=== PATIENT | female | born 1990 | race Caucasian/White ===

== ENCOUNTER 2017-04-26 20:32 | Emergency (ER) | payer BC, SELFPAY ==
[2017-04-26 20:33] VITALS: BP 129/77; PULSE 95; RESP 16; TEMP 37.2; O2SAT 96; BMI 31.7
[2017-04-26] MEDS: Ondansetron 4 MG/2 ML Vial IV (21:12)
[2017-04-26] MEDS: 0.9% Normal Saline 1,000 ML 1000 ML IV (21:12)
--- NOTE | 2017-04-26 21:12 | ED.DCSUM_ITS ---
- ER Visit Summary Date of Service: 04/26/17 Chief Complaint: Nausea, vomiting, diarrhea History of Present Illness: The patient is a 26 F who is currently 19 weeks . She reports onset of nausea, vomiting, and diarrhea last evening. She is having more diarrhea than vomiting. She reports her temperature earlier today was 99.0. She took Tylenol around 7 PM tonight for some body aches and headache. She denies having cough or congestion. Her significant other had similar symptoms last week. Patient reports the OB nurse when her to come in for fluids. They had also talked about calling her in Tamiflu. Physical Examination: Blood pressure is 129/77, temperature 98.9, heart rate 95 , respiratory rate 16, pulse ox 96% on room air. Patient sitting upright in bed in no acute distress. She is nontoxic appearing. Head neck examination is unremarkable. Heart is regular rate and rhythm. No lung sounds are clear. Abdomen is soft mild epigastric tenderness. There is no guarding or rebound. Hypoactive bowel sounds are noted. Test Results: heart tones are measured at 140. CBC reveals normal white count with 83% neutrophils. Chemistry studies were potassium of 3.4. Urinalysis shows 15 ketones. Influenza swab is negative. Emergency Department Course and Treatment: She was given IV fluids and Zofran here. She is able to tolerate p.o. liquids. She be discharged with a prescription for Zofran. I did speak with Dr. Anand. There is no need to start the patient on Tamiflu at this time. Treatment Plan: [] Disposition: Discharge Impression: Viral gastroenteritis This note was generated with [email or web address] dictation software. It may contain incorrect words, spelling, and punctuation that were not noted in review of the chart prior to signing ED Disposition - Plan for ED Patient: Chief Complaint: Nausea/Vomiting/Diarrhea Referrals: Sherrie Duenas [Primary Care Provider] -
[2017-04-26 21:20] LABS: Absolute Lymphocyte Count 0.89 X10^3/ul (0.83-4.51); Absolute Neutrophil Count 7.7 X10^3/uL (2.0-7.7); Basophil# 0.01 X10^3/uL; Basophil% 0.1 % (0-1); Eosinophil# 0.01 X10^3/uL; Eosinophils% 0.1 % (0-5); Hematocrit 39.9 % (37-47); Hemoglobin 13.5 g/dl (12.0-15.0); Lymphocyte # 0.89 X10^3/ul (4.0); Lymphocyte % 9.6 % (19-41); Mean Corp Hgb Conc 33.8 g/gl (32-36); Mean Corpuscular Hgb 28.8 pg (27.0-32.0); Mean Corpuscular Volume 85.1 fL (81-99); Mean Platelet Vol. 10.4 fl (6.2-12.0); Monocyte# 0.64 X10^3/uL; Monocyte% 6.9 % (0-10); Neutrophil # 7.68 X10^3/uL (2.7-7.7); Neutrophil % 83.1 % (47-70); Platelet Count 194 K/mm3 (150-450); RBC Distribution Width CV 13.1 % (11.6-14.6); RBC Distribution Width SD 40.4 fl (35.1-43.9); Red Blood Count 4.69 M/mm3 (4.2-5.4); White Blood Count 9.3 K/mm3 (4.4-11.0)
[2017-04-26 21:22] LABS: POSITIVE COUNT NO; POSITIVE DIFFERENTIAL NO; POSITIVE MORPHOLOGY NO
[2017-04-26 21:34] LABS: Anion Gap 9 (5-15); BUN 8 mg/dL (7-18); BUN/Creat Ratio 13.1 RATIO (10-20); Calcium,Total 8.6 mg/dL (8.5-10.1); Chloride 105 mmol/L (98-107); Creatinine, Serum 0.61 mg/dL (0.55-1.02); EST Glomerular Filtration Rate 126 mL/min (>60); Est Glom Filt Rate - Afr Amer 153 mL/min (>60); Glucose 90 mg/dL (74-106); Potassium 3.4 mmol/L (3.5-5.1); Sodium Level 138 mmol/L (136-145)
[2017-04-26] MEDS: 0.9% Normal Saline 1,000 ML 150 ML IV (22:08)
[2017-04-26 22:19] LABS: Red Blood Cells-Urine 0 SEEN /hpf (0-5)
[2017-04-26 22:59] LABS: Color, Urine Yellow (Yellow); Glucose, Dipstick Normal (Normal); Ketone-Dipstick 15 mg/dl (Negative); Leukocyte Esterase-Dipstick 25 /ul (Negative); Nitrite-Dipstick Negative (Negative); Occult Blood-Urine Negative /ul (Negative); Protein-Dipstick 30 mg/dl (Negative); Urine Bilirubin Dipstick Negative (Negative); Urine Clarity Clear (Clear); Urine Urobilinogen Normal (Normal)
[2017-04-26 23:10] LABS: Bacteria 1+ /hpf (None Seen); Mucous, Urine 3+ /hpf (<or=2+); Squamous Epithelial Cells - UA 0-5 SEEN /hpf (5-10); White Blood Cells 0-5 SEEN /hpf (0-5)
--- NOTE | 2017-04-26 23:39 | ED.DEP ---
ED Disposition - Plan for ED Patient: Disposition: Home or Assisted Living Chief Complaint: Nausea/Vomiting/Diarrhea Instructions: ED Gastroenteritis Viral Prescriptions: Ondansetron [Zofran Odt] 4 mg PO Q8H PRN PRN #10 tablet PRN Reason: Nausea Referrals: Sherrie Duenas [Primary Care Provider] - Daniel Marcelino MD [STAFF PHYSICIAN] -
[2017-04-26] MEDS: Ondansetron ODT 4 MG Tablet PO (23:49)
[2017-04-26 23:56] VITALS: BP 110/67; PULSE 90; RESP 16; O2SAT 98
--- NOTE | 2017-04-26 23:57 | ED.RN ---
REVIEWED D/C INSTRUCTIONS, FOLLOW UP CARE, PRESCRIPTION, AND S/S THAT WOULD WARRANT A RETURN TO THE ED WITH PT. PT VERBALIZED AN UNDERSTANDING AND DENIES FURTHER QUESTIONS FOR THIS RN. PT SKIN P/W/D, RESP EVEN AND UNLABORED, PT A&O X 3, NO DISTRESS NOTED. PT AMBULATED OUT OF ED, GAIT STEADY.
== END 2017-04-26 23:59 | disposition home or self-care (01) ==
PROVIDERS: Emergency Provider Emergency Medicine; Family Provider Nurse Practitioner; PCP Nurse Practitioner
DX: O98.512 Other viral diseases complicating pregnancy, second trimester (principal); A08.4 Viral intestinal infection, unspecified; Z87.891 Personal history of nicotine dependence; Z3A.19 19 weeks gestation of pregnancy
CPT/HCPCS: 80048; 81001; 85025; 87804; 96361; 96374; 99283; J7030; A4216; J2405

== ENCOUNTER → 2017-07-05 15:29 | Outpatient (CLI) | payer BC, SELFPAY ==
[2017-07-05 17:16] LABS: Hematocrit 38.9 % (37-47); Hemoglobin 13.4 g/dl (12.0-15.0); Mean Corp Hgb Conc 34.4 g/gl (32-36); Mean Corpuscular Hgb 29.3 pg (27.0-32.0); Mean Corpuscular Volume 85.1 fL (81-99); Mean Platelet Vol. 11.3 fl (6.2-12.0); Platelet Count 233 K/mm3 (150-450); RBC Distribution Width CV 12.8 % (11.6-14.6); RBC Distribution Width SD 39.3 fl (35.1-43.9); Red Blood Count 4.57 M/mm3 (4.2-5.4); White Blood Count 10.8 K/mm3 (4.4-11.0)
[2017-07-05 17:18] LABS: Glucose Challenge Gest 1H 50g 149 mg/dL (70-140)
[2017-07-05 17:21] LABS: Scan Indicated on CBC? Y/N NO
== END ==
PROVIDERS: Visit Provider Obstetrics & Gynecology
DX: Z34.83 Encounter for supervision of other normal pregnancy, third trimester (principal)
CPT/HCPCS: 36415; 82950; 85027

== ENCOUNTER → 2017-07-16 08:04 | Outpatient (CLI) | payer BC, SELFPAY ==
[2017-07-16 09:57] LABS: Glucose GTT-Gestation. Fasting 69 mg/dL (<105)
[2017-07-16 10:56] LABS: Glucose GTT-Gestational 1 Hr 115 mg/dL (<190)
[2017-07-16 12:14] LABS: Glucose GTT-Gestational 2 Hr 108 mg/dL (<165)
[2017-07-16 12:16] LABS: Glucose GTT-Gestational 3 Hr 46 L (<145)
== END ==
PROVIDERS: Family Provider Nurse Practitioner; PCP Nurse Practitioner; Visit Provider Obstetrics & Gynecology
DX: O24.912 Unspecified diabetes mellitus in pregnancy, second trimester (principal); Z3A.00 Weeks of gestation of pregnancy not specified
CPT/HCPCS: 36415; 82951; 82952

== ENCOUNTER → 2017-08-28 18:57 | Outpatient (CLI) | payer BC, SELFPAY ==
[2017-08-28 20:59] LABS: Group B Strep DNA By PCR Negative (Negative); Internal Control PASS; Probe Check PASS; Specimen Processing Control PASS
== END ==
PROVIDERS: Family Provider Nurse Practitioner; PCP Nurse Practitioner; Visit Provider Obstetrics & Gynecology
DX: Z36.85 Encounter for antenatal screening for Streptococcus B (principal)
CPT/HCPCS: 87081; 87653

== ENCOUNTER 2017-09-26 01:30 | Inpatient (IN) | payer BC, SELFPAY ==
[2017-09-25 21:12] VITALS: BMI 38.3
[2017-09-25 21:45] LABS: ROM Internal Control Test YES-OK TO RESULT pt. (Internal QC); ROM Patient Test Negative (Negative)
[2017-09-26] MEDS: Nalbuphine 10 MG/ML Ampul IV (00:09)
[2017-09-26 00:32] LABS: Color, Urine Yellow (Yellow); Glucose, Dipstick Normal (Normal); Ketone-Dipstick Negative (Negative); Leukocyte Esterase-Dipstick Negative /ul (Negative); Mucous, Urine 0 SEEN /hpf (<or=2+); Nitrite-Dipstick Negative (Negative); Occult Blood-Urine 25 /ul (Negative); Protein-Dipstick 30 mg/dl (Negative); Red Blood Cells-Urine 0 SEEN /hpf (0-5); Specific Gravity, Urine 1.015 (1.002-1.030); Urine Bilirubin Dipstick Negative (Negative); Urine Clarity Sl. Cloudy (Clear); Urine Urobilinogen Normal (Normal); Urine pH 6.5 (5.0 - 8.0); White Blood Cells 0 SEEN /hpf (0-5)
[2017-09-26 00:43] LABS: AST(SGOT) 21 U/L (15-37); Alanine Aminotransfer ALT/SGPT 15 U/L (13-56); Creatinine, Serum 0.92 mg/dL (0.55-1.02); EST Glomerular Filtration Rate 78 mL/min (>60); Est Glom Filt Rate - Afr Amer 95 mL/min (>60); Estimated Creatinine Clearance 87.51 ml/min; Hematocrit 38.9 % (37-47); Hemoglobin 13.3 g/dl (12.0-15.0); Mean Corp Hgb Conc 34.2 g/gl (32-36); Mean Corpuscular Hgb 28.5 pg (27.0-32.0); Mean Corpuscular Volume 83.5 fL (81-99); Platelet Count 257 K/mm3 (150-450); Protein:Creat Ratio 393 mg/g CRE (0-200); RBC Distribution Width CV 12.9 % (11.6-14.6); RBC Distribution Width SD 38.5 fl (35.1-43.9); Red Blood Count 4.66 M/mm3 (4.2-5.4); Scan Indicated on CBC? Y/N NO; Uric Acid 6.9 mg/dL (2.6-6.0); White Blood Count 14.6 K/mm3 (4.4-11.0)
[2017-09-26 00:45] LABS: International Normalized Ratio 0.9; Prothrombin Time (Protime)PT. 12.4 SECONDS (11.7-14.9)
[2017-09-26 00:46] LABS: Bacteria RARE /hpf (None Seen); Partial Thromboplast Time 27.2 Seconds (24.1-36.2); Squamous Epithelial Cells - UA 0-5 SEEN /hpf (5-10)
[2017-09-26] MEDS: Lactated Ringers 1,000 ML 50 ML IV ×4 (01:00→17:01)
[2017-09-26] MEDS: Oxytocin 30 units/NS 500 ml 30 UNITS/500 ML IV.SOLN IV (04:05)
[2017-09-26] MEDS: fentaNYL-bupivacaine (epidural) 100 ML BAG EPIDURAL ×3 (04:09→17:38)
[2017-09-26] MEDS: Mag Hydrox/Al Hydrox/Simeth 30 ML UDC PO ×3 (06:30→18:25)
[2017-09-26] MEDS: Ondansetron 4 MG/2 ML Vial IV ×2 (06:31→17:53)
--- NOTE | 2017-09-26 07:00 | PN.OBGYN_ITS ---
Subjective: Comfortable with epidural in place. No headaches. Objective: Afeb BP 130s/90s - Physical Exam General: Alert, Oriented x3, Cooperative, No apparent distress Lungs: Clear to auscultation, Normal air movement Cardiovascular: Regular rate, Regular Rhythm Abdomen: Soft, Non Tender, Non-Distended, Gravid, Appropriate for Gestational Age Extremities: Edema - mild pedal Skin: No rashes Neurological: Neuro grossly intact Psych/Mental Status: Normal Affect Comment: CE -//-2 Weight: 244 lb 6.4 oz Body Mass Index (BMI) 38.3 Laboratory Tests Past 24 Hrs 09/25/17 09/26/17 09/26/17 21:15 00:00 00:00 WBC 14.6 H RBC 4.66 Hgb 13.3 Hct 38.9 MCV 83.5 MCH 28.5 MCHC 34.2 RDW 12.9 RDW Differential 38.5 Plt Count 257 MPV 12.0 PT 12.4 INR 0.9 APTT 27.2 Creatinine Estim Creat Clear Calc Est GFR (MDRD) Af Amer Est GFR (MDRD) Non-Af Uric Acid AST ALT Urine Color Urine Clarity Urine pH Ur Specific [place] Urine Protein Urine Glucose (UA) Urine Ketones Urine Occult Blood Urine Nitrite Urine Bilirubin Urine Urobilinogen Ur Leukocyte Esterase Urine RBC Urine WBC Ur Squamous Epith Cells Urine Bacteria Urine Mucus U Random Total Protein Urine Creatinine Protein/Creatinin Ratio Vag Amniotic Fld Detect Negative Blood Type Antibody Screen 09/26/17 09/26/17 09/26/17 00:00 00:00 00:00 WBC RBC Hgb Hct MCV MCH MCHC RDW RDW Differential Plt Count MPV PT INR APTT Creatinine 0.92 Estim Creat Clear Calc 87.51 Est GFR (MDRD) Af Amer 95 Est GFR (MDRD) Non-Af 78 Uric Acid 6.9 H AST 21 ALT 15 Urine Color Yellow Urine Clarity Sl. Cloudy Urine pH 6.5 Ur Specific [place] 1.015 Urine Protein 30 H Urine Glucose (UA) Normal Urine Ketones Negative Urine Occult Blood 25 H Urine Nitrite Negative Urine Bilirubin Negative Urine Urobilinogen Normal Ur Leukocyte Esterase Negative Urine RBC 0 SEEN Urine WBC 0 SEEN Ur Squamous Epith Cells 0-5 SEEN Urine Bacteria RARE Urine Mucus 0 SEEN U Random Total Protein 34.0 H Urine Creatinine 86.50 Protein/Creatinin Ratio 393 H Vag Amniotic Fld Detect Blood Type Antibody Screen 09/26/17 00:00 WBC RBC Hgb Hct MCV MCH MCHC RDW RDW Differential Plt Count MPV PT INR APTT Creatinine Estim Creat Clear Calc Est GFR (MDRD) Af Amer Est GFR (MDRD) Non-Af Uric Acid AST ALT Urine Color Urine Clarity Urine pH Ur Specific [place] Urine Protein Urine Glucose (UA) Urine Ketones Urine Occult Blood Urine Nitrite Urine Bilirubin Urine Urobilinogen Ur Leukocyte Esterase Urine RBC Urine WBC Ur Squamous Epith Cells Urine Bacteria Urine Mucus U Random Total Protein Urine Creatinine Protein/Creatinin Ratio Vag Amniotic Fld Detect Blood Type O POSITIVE Antibody Screen NEGATIVE Medical Necessity - Tobacco Use Smoking Status: Former smoker Assessment/Plan Admitted at 40w4d ega with elevated BPs in early labor with elevated uric acid and elevated protein/creatinine ratio on UA. No overt signs of preeclampsia. AROM performed. IUPC placed. Pitocin augmentation at 6 mu/min.
[2017-09-26] MEDS: Acetaminophen 325 MG Tablet PO ×2 (11:27→19:00)
--- NOTE | 2017-09-26 16:35 | PCM.PN.BLA ---
Progress Note LABOR PROGRESS NOTE Comfortable with epidural. AVSS GEN - NAD, AAO x3 SVE deferred, last exam anterior lip,0 station per RN Steve Farias. TOCO 4-5/10 min FHR 135, moderate variability, + accelerations, no decelerations A/P: 26yo G1 at 40 3/7wga, IOL on pitocin in active labor for preeclampsia without severe features, Cat I FHR -Maternal and statuses reassuring -Continue pitocin as tolerated by mother and fetus
[2017-09-26] MEDS: 0.9% Saline Lock 10 ML Syringe IV (19:01)
--- NOTE | 2017-09-26 20:35 | PCM.PN.BLA ---
Progress Note LABOR PROGRESS NOTE Mimi reports increasing painfulness in her back with contractions. AVSS GEN - NAD, AAO x 3 SVE FD/+1 station and pushes to +2 with mild caput TOCO 4/10 min FHR 180, minimal variability, no accelerations, + variable decelerations A/P:26yo G1 @ 40 3/7wga in active stage, Cat II FHR on pitocin with intra-amnionitic infection -ISE placed, FHR with waning variability and thick meconium -IV Gentamicin/Clindamycin ordered for infection - reviewed indications with patient and -Will plan to continue pushing with position changes and attempted vacuum delivery if further descent in 30 minutes
[2017-09-26] MEDS: Oxytocin 30 units/NS 500 ml 30 UNITS/500 ML IV.SOLN 334 UNITS IV (21:34)
[2017-09-26] MEDS: miSOPROStol 200 MCG Tablet 800 MCG RECTAL (22:00)
[2017-09-26] MEDS: Oxytocin 30 units/NS 500 ml 30 UNITS/500 ML IV.SOLN 167 UNITS IV (22:04)
--- NOTE | 2017-09-26 22:22 | PN_ITS ---
Progress Note LABOR PROGRESS NOTE Mimi reports increasing painfulness in her back with contractions. AVSS GEN - NAD, AAO x 3 SVE FD/+1 station and pushes to +2 with mild caput TOCO 4/10 min FHR 180, minimal variability, no accelerations, + variable decelerations A/P:26yo G1 @ 40 3/7wga in active stage, Cat II FHR on pitocin with intra- amnionitic infection -ISE placed, FHR with waning variability and thick meconium -IV Gentamicin/Clindamycin ordered for infection - reviewed indications with patient and -Will plan to continue pushing with position changes and attempted vacuum delivery if further descent in 30 minutes
--- NOTE | 2017-09-26 22:22 | PCM.OB.VAG ---
- Problem List (1) 40 weeks gestation of Status: Acute (2) Preeclampsia Status: Acute Qualifiers: Trimester: third trimester Qualified Code(s): O14.93 - Unspecified pre-eclampsia, third trimester (3) Vacuum extractor delivery, delivered Status: Acute (4) Chorioamnionitis Status: Acute Qualifiers: Fetus number: single or unspecified fetus Trimester: third trimester Qualified Code(s): O41.1230 - Chorioamnionitis, third trimester, not applicable or unspecified Comment: IV Gentamicin, Clindamycin Vaginal Delivery Maternal Presentation: Medically Indicated Induction Method of Induction: Pitocin, Amniotomy Medical Reason for Induction: - - Preeclampsia Amniotic Membrane Rupture Type: Artificial Rupture of Membrane time: 09/26/17 0647h Amniotic Fluid Description: Thick meconium Final SHAE: 09/23/17 Final SHAE Source: US <20 weeks Gestational age: 40 Weeks and 4 Days [place] doctor who attended delivery (if requested by OB): Abdulkadir García Date of Procedure: 09/26/17 Pre-Operative Diagnosis: 40 3/7wga, preeclampsia, chorioamnionitis, Cat II FHR Post-Operative Diagnosis: 40 3/7wga, preeclampsia, chorioamnionitis, Cat II FHR Surgery/ Procedure Performed: Vacuum Assisted Vaginal Delivery Anesthesiologist: Elena Vigil Type of Anesthesia: Epidural Description of Procedure: Patient was FD/+3 station and ROP on my exam. FHR remained Cat II with minimal variability and presence of variable decelerations. I advised vacuum delivery and reviewed benefits, as well as risks including potential failure requiring section - however unlikely. Also discussed section as alternative with review of risks, benefits. Patient agreed to proceed with vacuum. The Kiwi cap was applied at the flexion point and suction applied to 500mmHg at 2114h. Five pulls were performed with subsequent contractions with no pop-offs. The infant head delivered and the vacuum suction decompressed and Kiwi removed. The shoulders delivered with ease to reveal a female infant. Her tone was poor. The cord was doubly clamped and cut and she passed to the awaiting Pediatric Hospitalist. Cord gases and cord blood were obtained. The placenta delivered spontaneously and appeared intact on inspection. IV pitocin was started. An intrauterine exam was performed for heavy bleeding with uterine atony c/w hemorrhage. IM Methergine was administered with improvement of bleeding. Bilateral labial lacerations were repaired with 3-0 Vicryl rapide with good hemostasis. Cytotec 800mcg given per rectum. Needle and sponge counts correct x 2. 3162 g Presentation: Vertex Placental Delivery Description: Spontaneous Placenta Disposition: Sent to Pathology Cord Vessel Description: 3 Vessels Nuchal Cord Compression: Without compression Cord Gases drawn per routine: ABG, VBG Cord Entanglement: None Drain: Francis to straight drain Estimated Blood Loss: 550 ml A gender: Female (1 minute): 4 (5 minute): 9 - 9 also at 10 minutes Episiotomy Description: None Medications given after delivery: IV Pitocin, IM Methergin, - - Cytotec Complications: None
--- NOTE | 2017-09-26 22:35 | OP.PCM_ITS ---
- Problem List (1) 40 weeks gestation of Status: Acute (2) Preeclampsia Status: Acute Qualifiers: Trimester: third trimester Qualified Code(s): O14.93 - Unspecified pre- eclampsia, third trimester (3) Vacuum extractor delivery, delivered Status: Acute (4) Chorioamnionitis Status: Acute Qualifiers: Fetus number: single or unspecified fetus Trimester: third trimester Qualified Code(s): O41.1230 - Chorioamnionitis, third trimester, not applicable or unspecified Comment: IV Gentamicin, Clindamycin Vaginal Delivery Maternal Presentation: Medically Indicated Induction Method of Induction: Pitocin, Amniotomy Medical Reason for Induction: - - Preeclampsia Amniotic Membrane Rupture Type: Artificial Rupture of Membrane time: 09/26/17 0647h Amniotic Fluid Description: Thick meconium Final SHAE: 09/23/17 Final SHAE Source: US <20 weeks Gestational age: 40 Weeks and 4 Days [place] doctor who attended delivery (if requested by OB): Abdulkadir García Date of Procedure: 09/26/17 Pre-Operative Diagnosis: 40 3/7wga, preeclampsia, chorioamnionitis, Cat II FHR Post-Operative Diagnosis: 40 3/7wga, preeclampsia, chorioamnionitis, Cat II FHR Surgery/ Procedure Performed: Vacuum Assisted Vaginal Delivery Anesthesiologist: Elena Vigil Type of Anesthesia: Epidural Description of Procedure: Patient was FD/+3 station and ROP on my exam. FHR remained Cat II with minimal variability and presence of variable decelerations. I advised vacuum delivery and reviewed benefits, as well as risks including potential failure requiring section - however unlikely. Also discussed section as alternative with review of risks, benefits. Patient agreed to proceed with vacuum. The Kiwi cap was applied at the flexion point and suction applied to 500mmHg at 2114h. Five pulls were performed with subsequent contractions with no pop-offs. The infant head delivered and the vacuum suction decompressed and Kiwi removed. The shoulders delivered with ease to reveal a female . Her tone was poor. The cord was doubly clamped and cut and she passed to the awaiting Pediatric Hospitalist. Cord gases and cord blood were obtained. The placenta delivered spontaneously and appeared intact on inspection. IV pitocin was started. An intrauterine exam was performed for heavy bleeding with uterine atony c/w hemorrhage. IM Methergine was administered with improvement of bleeding. Bilateral labial lacerations were repaired with 3-0 Vicryl rapide with good hemostasis. Cytotec 800mcg given per rectum. Needle and sponge counts correct x 2. Infant 3162 g Presentation: Vertex Placental Delivery Description: Spontaneous Placenta Disposition: Sent to Pathology Cord Vessel Description: 3 Vessels Nuchal Cord Compression: Without compression Cord Gases drawn per routine: ABG, VBG Cord Entanglement: None Drain: Francis to straight drain Estimated Blood Loss: 550 ml Infant A gender: Female (1 minute): 4 (5 minute): 9 - 9 also at 10 minutes Episiotomy Description: None Medications given after delivery: IV Pitocin, IM Methergin, - - Cytotec Complications: None
--- NOTE | 2017-09-26 22:40 | PLAC_PTH ---
PATIENT: TIO BARBOUR LOC: [facility] U#:[id number] AGE/SX: 26/F ROOM: WP016 RE09/26/[address]: Dr. Daniel Marcelino MD : 1990 BED: 1 DIS: 09/28/2017 SPEC #: [id number] RECD: 09/27/17 04:48 STATUS: AURELIA BRAN #: [id number] IRINA: 09/26/17 22:[address]: Tammy Houston,[facility] DEPT: SURGICAL PATHOLOGY RECD BY: Nohemy Thomas ENTERED: 09/27/17 08:41 SP TYPE: PLACENTA OTHR DR: MD Sherrie Salazar, CHIEF OPERATOR HYDROFORMER-C Tissues: Placenta, NOS Procedures: Surgery Specimen Level V HEADER OPERATION: Vaginal delivery PRE-OP DIAGNOSIS: Chorioamnionitis, meconium, category II heart rate TISSUE SUBMITTED: Placenta MICROSCOPIC DIAGNOSIS Placenta: Placental disc - third trimester placenta (427 gm). Focal acute vasculitis of subamniotic blood vessels. Focal chronic villitis of unknown etiology. Increased perivillous and intravillous fibrin deposition. Membranes ? acute chorioamnionitis. Umbilical cord - three blood vessels and acute funisitis. SJ:alejandra 09/30/17 MICROSCOPIC DESCRIPTION Slides are reviewed. GROSS DESCRIPTION SPECIMEN: PLACENTA / CLINICAL INFORMATION: A. Weight: 3.07 kg B. Gestational Age: 40 weeks C. Sex: Female PLACENTAL WEIGHT (POST FIXATION): 427 gm PLACENTAL DIMENSIONS: 17 x 15 x 3 cm PLACENTAL SHAPE: Usual ovoid PLACENTAL WEIGHT FOR GESTATIONAL AGE: Within 10-99th percentile MEMBRANES - Present A. Insertion: Marginal B. Site of rupture from edge: 4 cm from edge of placental disc C. Color of membrane: Sinha-greenish consistent with meconium staining. D. Abnormalities: None UMBILICAL CORD - Present A. Color: Sinha-carbajal B. Insertion: Paracentral C. Length: 23 cm D. Diameter: 0.8 to 1.5 cm E. Number of vessels: Three F. Abnormalities: None PLACENTAL DISC - Present A. Color of surface: Sinha-carbajal B. surface abnormalities: None C. Maternal cotyledons: Intact with minimal tears D. Attached retro placental clot: No clot E. Cut surface: Dark red and spongy F. Lesions: Sections reveal a focal, ill-defined, firm area. G. Separate clot: Absent SECTIONS SUBMITTED: 1. Membrane roll 2. Cord, maternal end 3. Cord, end 4. Placental disc, and maternal surfaces, firm area 5. Placental disc, and maternal surfaces 6. Placental disc, and maternal surfaces SCOTT:alejandra 09/27/17 TC:2 CPT: 59430
--- NOTE | 2017-09-26 22:42 | PCM.DCVAG ---
Discharge Diet: No Restrictions Discharge Activity: Return to Normal Activity, May Shower, - - No tub bath for 1-2 weeks. May resume sexual activity in: 6 weeks Lifting Restrictions: 20-25 lb Call your doctor if you observe: Fever of 101 or Higher, Inability to urinate, Inability to have a bowel movement, Using more than one pad per hour, Shortness of breath, Chest pain, Calf discomfort, Uncontrolled pain Additional Instructions: If you experience any of the following, contact your healthcare provider. Bleeding that soaks a pad every hour for 2 hours Fever 100.4 or higher Unrelieved incision or abdominal pain Swelling, redness, discharge or bleeding from your incision or episiotomy site Your incision begins to separate Problems urinating (including inability to urinate or burning while urinating). Visual changes Severe headache Flu-like symptoms Pain or redness in one of both of your breasts Pain, warmth, tenderness or swelling in your legs, especially the calf area Frequent nausea and vomiting Symptoms of depression or anxiety If you experience any of the following, call 911 or go to the nearest Emergency Room. Chest pain Problems breathing Seizure activity Partial or complete paralysis of a body part, slurred speech, weakness or drooping of the face, or a sudden inability to walk or hold your balance Allergies/Adverse Reactions: Allergies Penicillins Allergy (Verified 09/25/17 21:14) Hives Sulfa (Sulfonamide Antibiotics) Allergy (Verified 09/25/17 21:14) Rash sulfur dioxide Allergy (Verified 05/22/14 03:25) Rash Medications to take at Discharge Prenatabs FA 1 tab PO DAILY 09/25/17 Docusate Sodium [Colace] 100 mg PO BID PRN PRN #60 cap 09/26/17 Ibuprofen 600 mg PO TID PRN #30 tab 09/26/17 The following prescriptions were given: Docusate Sodium [Colace] 100 mg PO BID PRN PRN #60 cap PRN Reason: Constipation Ibuprofen 600 mg PO TID PRN #30 tab PRN Reason: Pain Please Follow Up With: Daniel Marcelino MD When: 7-10 days for blood pressure check Please Follow Up With: Daniel Marcelino MD When: 6 weeks for visit Primary Care Physician: Sherrie Duenas [Primary Care Provider] - Test Results: Test results from this visit will be discussed in further detail at your follow-up appointment, if applicable.
--- NOTE | 2017-09-26 22:45 | DCINST_ITS ---
Discharge Diet: No Restrictions Discharge Activity: Return to Normal Activity, May Shower, - - No tub bath for 1 -2 weeks. May resume sexual activity in: 6 weeks Lifting Restrictions: 20-25 lb Call your doctor if you observe: Fever of 101 or Higher, Inability to urinate, Inability to have a bowel movement, Using more than one pad per hour, Shortness of breath, Chest pain, Calf discomfort, Uncontrolled pain Additional Instructions: If you experience any of the following, contact your healthcare provider. * Bleeding that soaks a pad every hour for 2 hours * Fever 100.4 or higher * Unrelieved incision or abdominal pain * Swelling, redness, discharge or bleeding from your incision or episiotomy site * Your incision begins to separate * Problems urinating (including inability to urinate or burning while urinating) . * Visual changes * Severe headache * Flu-like symptoms * Pain or redness in one of both of your breasts * Pain, warmth, tenderness or swelling in your legs, especially the calf area * Frequent nausea and vomiting * Symptoms of depression or anxiety If you experience any of the following, call 911 or go to the nearest Emergency Room. * Chest pain * Problems breathing * Seizure activity * Partial or complete paralysis of a body part, slurred speech, weakness or drooping of the face, or a sudden inability to walk or hold your balance Allergies/Adverse Reactions: Allergies Penicillins Allergy (Verified 09/25/17 21:14) Hives Sulfa (Sulfonamide Antibiotics) Allergy (Verified 09/25/17 21:14) Rash sulfur dioxide Allergy (Verified 05/22/14 03:25) Rash Medications to take at Discharge Prenatabs FA 1 tab PO DAILY 09/25/17 Docusate Sodium [Colace] 100 mg PO BID PRN PRN #60 cap 09/26/17 Ibuprofen 600 mg PO TID PRN #30 tab 09/26/17 The following prescriptions were given: Docusate Sodium [Colace] 100 mg PO BID PRN PRN #60 cap PRN Reason: Constipation Ibuprofen 600 mg PO TID PRN #30 tab PRN Reason: Pain Please Follow Up With: Daniel Marcelino MD When: 7-10 days for blood pressure check Please Follow Up With: Daniel Marcelino MD When: 6 weeks for visit Primary Care Physician: Sherrie Duenas [Primary Care Provider] - Test Results: Test results from this visit will be discussed in further detail at your follow- up appointment, if applicable.
--- NOTE | 2017-09-27 | NURSING ---
Taking over pt care at this time.
[2017-09-27] MEDS: Ibuprofen 600 MG Tablet PO ×4 (00:22→21:43)
[2017-09-27 00:24] VITALS: BP 118/66; PULSE 120; RESP 18; TEMP 37.3; O2SAT 94
[2017-09-27 04:47] VITALS: BP 137/83; PULSE 95; RESP 16; TEMP 37.2; O2SAT 96
[2017-09-27 06:05] LABS: Hematocrit 35.5 % (37-47); Hemoglobin 12.3 g/dl (12.0-15.0); Mean Corp Hgb Conc 34.6 g/gl (32-36); Mean Corpuscular Hgb 29.1 pg (27.0-32.0); Mean Corpuscular Volume 84.1 fL (81-99); Mean Platelet Vol. 12.2 fl (6.2-12.0); Platelet Count 209 K/mm3 (150-450); RBC Distribution Width SD 38.9 fl (35.1-43.9); Red Blood Count 4.22 M/mm3 (4.2-5.4)
[2017-09-27 06:13] LABS: Scan Indicated on CBC? Y/N YES- FLAGS NOTED
[2017-09-27 06:15] LABS: White Blood Count 34.2 K/mm3 (4.4-11.0)
[2017-09-27 06:50] LABS: Differential Comment SCANNED
[2017-09-27] MEDS: Senna/Docusate Sodium 1 Tablet PO (07:50)
[2017-09-27] MEDS: 0.9% Saline Lock 10 ML Syringe IV ×4 (07:53→21:43)
[2017-09-27 08:07] VITALS: BP 140/73; PULSE 75; RESP 20; TEMP 36.2
--- NOTE | 2017-09-27 08:23 | PCM.PN.OB ---
Patient Problems: Active and Suspected Problems 40 weeks gestation of (Acute) Preeclampsia (Acute) Vacuum extractor delivery, delivered (Acute) Chorioamnionitis (Acute) IV Gentamicin, Clindamycin Subjective: Some back pain. Bleeding appropriate. Objective: Afeb VSS WBC 34 today will repeat in am tomorrow. - Physical Exam General: Alert, Oriented x3, Cooperative, No apparent distress Lungs: Clear to auscultation, Normal air movement Cardiovascular: Regular rate, Regular Rhythm Abdomen: Soft, Non Tender, Non-Distended, - - Fundus firm nontender Extremities: No edema Skin: No rashes Neurological: Neuro grossly intact Psych/Mental Status: Normal Affect Comment: Lochia appropriate Vital Signs Temp Pulse Resp BP Pulse Ox 97.2 F L 75 20 H 140/73 H 96 09/27/17 08:07 09/27/17 08:07 09/27/17 08:07 09/27/17 08:07 09/27/17 04:47 Oxygen Delivery Method Room Air Weight: 244 lb 6.4 oz Body Mass Index (BMI) 38.3 Intake and Output for Last 24 Hours 09/25/17 09/26/17 09/27/17 23:59 23:59 23:59 Intake Total 3711 / 3711 200 / 200 Output Total 1300 / 1300 400 / 400 Balance 2411 / 2411 -200 / -200 Laboratory Tests Past 24 Hrs 09/27/17 05:10 WBC 34.2 H* RBC 4.22 Hgb 12.3 Hct 35.5 L MCV 84.1 MCH 29.1 MCHC 34.6 RDW 13.0 RDW Differential 38.9 Plt Count 209 MPV 12.2 H Differential Comment SCANNED Diff Path Review May foll Medical Necessity - Tobacco Use Smoking Status: Former smoker Assessment/Plan All Active Problems 40 weeks gestation of (Acute) Preeclampsia (Acute) Vacuum extractor delivery, delivered (Acute) Chorioamnionitis (Acute) Doing well on PP day#1. No overt signs of endometritis. Will repeat CBC to check WBC in am.
[2017-09-27 09:37] LABS: Pathologist Review Reviewed
[2017-09-27] MEDS: Prenatal Vits Tablet 1 TABLET PO (09:47)
[2017-09-27 12:00] VITALS: BP 132/82; PULSE 93; RESP 20; TEMP 36.8
[2017-09-27 16:51] VITALS: BP 130/75; PULSE 93; RESP 18; TEMP 37.1
[2017-09-27] MEDS: Acetaminophen 325 MG Tablet PO (18:40)
[2017-09-27 19:50] VITALS: BP 138/77; PULSE 93; RESP 17; TEMP 36.4; O2SAT 98
[2017-09-28 01:55] VITALS: BP 127/61; PULSE 77; RESP 17; TEMP 36
[2017-09-28] MEDS: Ibuprofen 600 MG Tablet PO ×3 (04:10→16:07)
[2017-09-28] MEDS: 0.9% Saline Lock 10 ML Syringe IV (05:35)
[2017-09-28 06:05] LABS: Absolute Lymphocyte Count 3.23 X10^3/ul (0.83-4.51); Absolute Neutrophil Count 12.4 X10^3/uL (2.0-7.7); Basophil# 0.04 X10^3/uL; Basophil% 0.2 % (0-1); Eosinophil# 0.31 X10^3/uL; Eosinophils% 1.8 % (0-5); Hematocrit 31.3 % (37-47); Hemoglobin 10.5 g/dl (12.0-15.0); Lymphocyte # 3.23 X10^3/ul (4.0); Lymphocyte % 18.7 % (19-41); Mean Corp Hgb Conc 33.5 g/gl (32-36); Mean Corpuscular Hgb 28.9 pg (27.0-32.0); Mean Corpuscular Volume 86.2 fL (81-99); Mean Platelet Vol. 11.2 fl (6.2-12.0); Monocyte# 1.17 X10^3/uL; Monocyte% 6.8 % (0-10); Neutrophil # 12.44 X10^3/uL (2.7-7.7); Neutrophil % 72.3 % (47-70); Platelet Count 169 K/mm3 (150-450); RBC Distribution Width CV 13.4 % (11.6-14.6); RBC Distribution Width SD 40.7 fl (35.1-43.9); Red Blood Count 3.63 M/mm3 (4.2-5.4); White Blood Count 17.2 K/mm3 (4.4-11.0)
[2017-09-28 06:24] LABS: POSITIVE COUNT NO; POSITIVE DIFFERENTIAL NO; POSITIVE MORPHOLOGY NO
--- NOTE | 2017-09-28 08:35 | PCM.PN.OB ---
Patient Problems: Active and Suspected Problems 40 weeks gestation of (Acute) Preeclampsia (Acute) Vacuum extractor delivery, delivered (Acute) Chorioamnionitis (Acute) IV Gentamicin, Clindamycin Subjective: Some back pain but overall doing well. Breast feeding. Bleeding appropriate. No fevers. Objective: Afeb VSS. WBC decreased from 34 to 17. - Physical Exam General: Alert, Oriented x3, Cooperative, No apparent distress Lungs: Clear to auscultation, Normal air movement Cardiovascular: Regular rate, Regular Rhythm Abdomen: Soft, Non Tender, Non-Distended, - - Fundus nontender Extremities: No edema Skin: No rashes Neurological: Neuro grossly intact Psych/Mental Status: Normal Affect Comment: Lochia appropriate Vital Signs Temp Pulse Resp BP Pulse Ox 96.8 F L 77 17 127/61 H 98 09/28/17 01:55 09/28/17 01:55 09/28/17 01:55 09/28/17 01:55 09/27/17 19:50 Oxygen Delivery Method Room Air Weight: 244 lb 6.4 oz Body Mass Index (BMI) 38.3 Intake and Output for Last 24 Hours 09/26/17 09/27/17 09/28/17 23:59 23:59 23:59 Intake Total 3711 / 3711 200 / 200 Output Total 1300 / 1300 400 / 400 Balance 2411 / 2411 -200 / -200 Laboratory Tests Past 24 Hrs 09/27/17 09/28/17 05:10 05:55 WBC 17.2 H RBC 3.63 L Hgb 10.5 L Hct 31.3 L MCV 86.2 MCH 28.9 MCHC 33.5 RDW 13.4 RDW Differential 40.7 Plt Count 169 MPV 11.2 Immature Gran % (Auto) 0.200 Neut % (Auto) 72.3 H Lymph % (Auto) 18.7 L Terrell % (Auto) 6.8 Eos % (Auto) 1.8 Baso % (Auto) 0.2 Absolute Neuts (auto) 12.4 H Absolute Lymphs (auto) 3.23 Total Counted Not Reportable Diff Path Review Reviewed Medical Necessity - Tobacco Use Smoking Status: Former smoker Assessment/Plan All Active Problems 40 weeks gestation of (Acute) Preeclampsia (Acute) Vacuum extractor delivery, delivered (Acute) Chorioamnionitis (Acute) No signs of endometritis. Will stop antibiotics. Cleared for discharge later today. Likely to hotel status as baby being observed for 48 hours. Home going instructions and warnings given.
--- NOTE | 2017-09-28 08:40 | DS.PCM_ITS ---
Discharge Date and Diagnosis - Problem List Patient Problems: Active and Suspected Problems 40 weeks gestation of (Acute) Preeclampsia (Acute) Vacuum extractor delivery, delivered (Acute) Chorioamnionitis (Acute) IV Gentamicin, Clindamycin Date of Admission: 09/26/17 Date of Discharge: 09/28/17 - Primary Discharge Diagnosis Active and Suspected Problems 40 weeks gestation of (Acute) Preeclampsia (Acute) Vacuum extractor delivery, delivered (Acute) Chorioamnionitis (Acute) IV Gentamicin, Clindamycin Hospital Course and Treatment Operations: None Procedures: - - VAVD, pitocin augmentation, epidural Summary of Care Provided: The patient is a 26 year old F [admitted in active labor. Progressed to FD then pushed to bring head to position in which VAVD could be performed. Developed signs of chorioamnionitis. Delivery of live without complication. No signs of endometritis after delivery. Discharged home on PP day#2.] Discharge Diet: No Restrictions Discharge Activity: Return to Normal Activity, May Shower, - - No tub bath for 1 -2 weeks. May resume sexual activity in: 6 weeks Call your doctor if you observe: Fever of 101 or Higher, Inability to urinate, Inability to have a bowel movement, Using more than one pad per hour, Shortness of breath, Chest pain, Calf discomfort, Uncontrolled pain Home Medications: Medications to take at Discharge Prenatabs FA 1 tab PO DAILY 09/25/17 Docusate Sodium [Colace] 100 mg PO BID PRN PRN #60 cap 09/26/17 Ibuprofen 600 mg PO TID PRN #30 tab 09/26/17 Following Prescrptions Were Given to Patient: Docusate Sodium [Colace] 100 mg PO BID PRN PRN #60 cap PRN Reason: Constipation Ibuprofen 600 mg PO TID PRN #30 tab PRN Reason: Pain Primary Care Physician: Sherrie Duenas [Primary Care Provider] - Please Follow Up With: Daniel Marcelino MD Please Follow Up With: Daniel Marcelino MD When: 6 weeks for visit Disposition: Home Minutes spent on discharge:: 15 Patient Condition:: Good Medical Necessity - Tobacco Use Smoking Status: Former smoker Meaningful Use Info Meaningful Use Diagnoses (Choose all that apply): None applicable
[2017-09-28 08:47] VITALS: BP 141/74; PULSE 72; RESP 18; TEMP 36.1
[2017-09-28] MEDS: Prenatal Vits Tablet 1 TABLET PO (09:58)
[2017-09-28 13:55] VITALS: BP 121/74; PULSE 70; RESP 18; TEMP 36.5
[2017-10-01 15:41] LABS: Pathology Specimen OB SEE PATHOLOGY REPORT
--- NOTE | 2017-10-04 16:08 | NURSING ---
Attempted follow up phone call, left message
== END 2017-09-28 17:00 | disposition home or self-care (01) | DRG 774 ==
LOC: WPOUT 01:30
PROVIDERS: Obstetrics & Gynecology; Admitting Provider Obstetrics & Gynecology; Family Provider Nurse Practitioner; PCP Nurse Practitioner; Visit Provider Obstetrics & Gynecology
DX: O14.04 Mild to moderate pre-eclampsia, complicating childbirth (principal); O72.1 Other immediate postpartum hemorrhage; O41.1230 Chorioamnionitis, third trimester, not applicable or unspecified; Z37.0 Single live birth; Z3A.40 40 weeks gestation of pregnancy; O77.0 Labor and delivery complicated by meconium in amniotic fluid; O48.0 Post-term pregnancy; O76 Abnormality in fetal heart rate and rhythm complicating labor and delivery; O70.0 First degree perineal laceration during delivery
CPT/HCPCS: 59025; 59050; 81001; 82565; 82570; 84112; 84156; 84450; 84460; 84550; 85025; 85027; 85610; 85730; 86850; 86900; 88307; 99218; J7120; A4216; G0378; J2405

== ENCOUNTER → 2018-02-14 14:07 | Outpatient (CLI) | payer BC, SELFPAY ==
[2017-09-25 21:12] VITALS: BMI 38.3
[2018-02-17 15:36] LABS: HPV Reflexed? NOT INDICATED
--- OUTSIDE RECORDS SUMMARY | 2018-05-21 05:31 | XMS RPT_ITS ---
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 Performed By: #### L400.0001 #### [facility] [address] [place], [address] SERUM CREATININE AND Collected: 09/26/2017 Status: F Source: [place] GFR 12:00 AM [facility] REPOSITORY TYPE CODE TESTS RESULT OUT OF RANGE REFERENCE UNITS LAB L501.1100 0.55-1.02 mg/dL Normal 0.92 CREAT,SERUM Result Comment: The validity of the calculated GFR AND GFRAA in patients over 70 years has not been determined. Clinical correlation is essential. LAB L501.1110 >60 mL/min Normal EST GFR 78 Result Comment: Non- GFR Calc LAB L501.1115 >60 mL/min Normal EST GFR - AA 95 Result Comment: GFR Calc LAB L501.1255 ml/min Normal Estimated CRCL 87.51 Performed By: #### L501.1105, L501.1400, L501.4100, L501.4405, L100.0500 #### [facility] [address] [place], [address] URIC ACID Collected: 09/26/2017 Status: F Source: [place] 12:00 AM [facility] REPOSITORY TYPE CODE TESTS RESULT OUT OF RANGE REFERENCE UNITS LAB L501.1400 2.6-6.0 mg/dL High URIC 6.9 Result Comment: The drugs N-Acetylcysteine and Metamizole may falsely depress this assay. Performed By: #### L501.1105, L501.1400, L501.4100, L501.4405, L100.0500 #### [facility] [address] [place], [address] AST(SGOT) Collected: 09/26/2017 Status: F Source: [place] 12:00 AM [facility] REPOSITORY TYPE CODE TESTS RESULT OUT OF RANGE REFERENCE UNITS LAB L501.4100 15-37 U/L Normal AST 21 Performed By: #### L501.1105, L501.1400, L501.4100, L501.4405, L100.0500 #### [facility] [address] [place], [address] ALANINE AMINOTRANSFERAS Collected: 09/26/2017 Status: F Source: [place] (SGPT) 12:00 AM [facility] REPOSITORY TYPE CODE TESTS RESULT OUT OF RANGE REFERENCE UNITS LAB L501.4405 13-56 U/L Normal ALT 15 Performed By: #### L501.1105, L501.1400, L501.4100, L501.4405, L100.0500 #### [facility] [address] [facility] [place], [place], [id number] CBC-COMPLETE BLOOD CNT Collected: 09/26/2017 Status: F Source: [place] NO DIFF 12:00 AM [facility] REPOSITORY TYPE CODE TESTS RESULT OUT OF RANGE REFERENCE UNITS LAB L100.1000 4.4-11.0 K/mm3 High WBC 14.6 LAB L100.1200 4.2-5.4 M/mm3 Normal RBC 4.66 LAB L100.1300 12.0-15.0 g/dl Normal HGB 13.3 LAB L100.1400 37-47 % Normal HCT 38.9 LAB L100.1500 81-99 fL Normal MCV 83.5 LAB L100.1600 27.0-32.0 pg Normal MCH 28.5 LAB L100.1700 32-36 g/gl Normal MCHC 34.2 LAB L100.1810 11.6-14.6 % Normal RDW CV 12.9 LAB L100.1820 35.1-43.9 fl Normal RDW SD 38.5 LAB L100.1900 150-450 K/mm3 Normal PLT 257 LAB L100.2000 6.2-12.0 fl Normal MPV 12.0 Performed By: #### L501.1105, L501.1400, L501.4100, L501.4405, L100.0500 #### [facility] [address] [place], [place], [id number] PROTEIN+CREATININE Collected: Status: F Source: [place] RATIO,URINE 09/26/2017 12:00 AM [facility] REPOSITORY TYPE CODE TESTS RESULT OUT OF RANGE REFERENCE UNITS LAB L501.1200 NO RANGE EST. mg/dL Normal UR CREAT 86.50 LAB L501.1930 <11.9 mg/dL High 34.0 PROTEIN,UR.R AN. LAB L501.1940 0-200 mg/g CRE High PROT:CRE 393 RATIO Performed By: #### L501.0900, L300.3900, L300.4310 #### [facility] [address] [place], [address] PROTHROMBIN TIME W/INR Collected: 09/26/2017 Status: F Source: [place] 12:00 AM [facility] REPOSITORY TYPE CODE TESTS RESULT OUT OF RANGE REFERENCE UNITS LAB L300.4150 11.7-14.9 SECONDS Normal PROTIME 12.4 LAB L300.4200 Normal INR 0.9 Performed By: #### L501.0900, L300.3900, L300.4310 #### [facility] [address] [place], [place], [address] PARTIAL THROMBOPLAST Collected: 09/26/2017 Status: F Source: [place] TIME 12:00 AM [facility] REPOSITORY TYPE CODE TESTS RESULT OUT OF RANGE REFERENCE UNITS LAB L300.4310 24.1-36.2 Seconds Normal PTT 27.2 Performed By: #### L501.0900, L300.3900, L300.4310 #### [facility] [address] [place], [address] TYPE AND SCREEN Collected: 09/26/2017 Status: F Source: [place] 12:00 AM [facility] REPOSITORY Order Comment: Reason for Type AND Screen/Red Cells: TYPE CODE TESTS RESULT OUT OF RANGE REFERENCE UNITS LAB B10.0800 O Normal BLOOD TYPE GEL POSITIVE LAB B100.4000 Normal Antibody NEGATIVE Screen Performed By: #### B101.7450 #### [facility] [place], [address] (ROM) RUPTURE OF Collected: 09/25/2017 Status: F Source: [place] [facility] 9:15 PM [facility] REPOSITORY TYPE CODE TESTS RESULT OUT OF RANGE REFERENCE UNITS LAB L205.1310 Negative Normal ROM Negative Result Comment: Amniotic fluid not present indicates No Rupture of Membranes at time of specimen collection. Performed By: #### L205.1000 #### [facility] [address] [place], [address] GROUP B STREP DNA Collected: 08/28/2017 Status: F Source: [place] BY PCR 12:00 AM [facility] REPOSITORY Order Comment: Comments: PATIENT ALLERGY TO PENICILLIN AND SULFA. Source: Vaginal-Rectal TYPE CODE TESTS RESULT OUT OF RANGE REFERENCE UNITS LAB L8200.0100 Negative Normal GBS TEST Negative RESULT Performed By: #### L8200.0000 #### [facility] [address] [place], [address] Observed: 08/28/2017 Status: F Source: [place] CULTURE, GROUP B 12:00 AM [facility] STREPTOCOCCUS REPOSITORY DARLEEN Culture Group B Beta Streptococcus is not isolated. Performed By: #### M100.1800 #### [facility] [address] [place], [address] PROGRESS Observed: 08/17/2017 Status: COMPLETED Source: [place] 1:[address] [facility] [place] REPOSITORY HNO ID: [id number] Author: Cristobal Erwin) Sukhdev Service: (none) Author Type: Physician Program Lead Type: Progress Notes Filed: 08/17/2017 2:15 PM Note Text: Subjective HPI Pt presents with nasal congestion x 1 weeks and then with an ear ache x 1 day. She had a temp of 100.4 this morning so her OB recommended she be seen. She is 35 weeks . This is her first . No nvd or abdominal pain. No significant cough. Review of Systems Constitutional: Negative. HENT: Positive for congestion, ear pain and sore throat. Eyes: Negative. Respiratory: Negative for cough. Cardiovascular: Negative. Skin: Negative. All other systems reviewed and are negative. PAST MEDICAL HISTORY Diagnosis Date - PMH - PAST MEDICAL HISTORY OF exercise induced asthma - PMH - PAST MEDICAL HISTORY OF 09/08/07 normal color vision Current Outpatient Prescriptions: albuterol HFA 90 mcg/Actuation INHALATION inhaler Inhale 2 Puffs as instructed every 4 hours as needed. Disp: 2 Inhaler Rfl: 6 fluticasone propionate(FLOVENT HFA 44 MCG/ACTUATION AEROSOL INHALER) Take two(2) puffs twice daily via spacer then rinse and gargle mouth with water. Disp: 1 Rfl: 11 FE C 100 MG-250 MG TAB slow release takes as needed Disp: Rfl: 0 B COMPLETE TAB once daily Disp: Rfl: 0 azithromycin (ZITHROMAX Z-JOSE) 250 mg tablet Take 2 tablets day one, then, 1 tablet daily until gone. Disp: 1 Package Rfl: 0 promethazine (PHENERGAN) 25 mg ORAL tablet Take one(1) tablet every four(4) to six(6) hours as needed for nausea. (Patient not taking: No sig reported) Disp: 12 Tab Rfl: 0 montelukast sodium(SINGULAIR 10 MG TAB) Take one(1) tablet daily. (Patient not taking: No sig reported) Disp: 30 Rfl: 6 norethindrone-ethinyl estrad(ORTHO-NOVUM (28) 1 MG-35 MCG TAB) Disp: Rfl: 0 No current facility-administered medications for this visit. PAST SURGICAL HISTORY Procedure Laterality Date - NONE FAMILY HISTORY Problem Relation Age of Onset - Asthma Mother - Asthma Father - Asthma Brother - Heart Paternal Aunt age 34 [place] - cerebral hemmorage [Other] [OTHER] Paternal Grandmother - Heart Maternal Grandmother - Asthma Maternal Grandmother - Allergies Maternal Grandmother - Diabetes mggf/mggm - borderline diabetes [Other] [OTHER] Maternal Grandmother Social History Substance Use Topics - Smoking status: Passive Smoke Exposure - Never Smoker - Smokeless tobacco: Never Used Comment: mom in another room - Alcohol use No BP 126/86 (BP Site: Left Arm, BP Position: Sitting, BP Cuff Size: Large Adult) Pulse 78 Temp 37.2 ?C (98.9 ?F) (Right Tympanic) Resp 16 Wt 105.1 kg (231 lb 12.8 oz) SpO2 98% Objective Physical Exam Constitutional: She is oriented to person, place, and time and well-developed, well-nourished, and in no distress. HENT: Head: Normocephalic and atraumatic. Right Ear: Tympanic membrane, external ear and ear canal normal. Left Ear: External ear and ear canal normal. Tympanic membrane is erythematous and bulging. A middle ear effusion is present. Nose: Nose normal. Mouth/Throat: Uvula is midline and mucous membranes are normal. Eyes: Conjunctivae are normal. Neck: Normal range of motion. Neck supple. Cardiovascular: Normal rate, regular rhythm and normal heart sounds. Pulmonary/Chest: Effort normal and breath sounds normal. Neurological: She is alert and oriented to person, place, and time. Skin: Skin is warm and dry. No rash noted. Psychiatric: Affect and judgment normal. Nursing note and vitals reviewed. ASSESSMENT/PLAN: 1. Acute otitis media, left - ICD9: 382.9, ICD10: H66.92 (primary diagnosis) - Will begin treatment with Zithromax pack as directed - Supportive care with plenty of fluids, rest, and analgesia prn. - Follow up in one week if symptoms persist or worsen. 2. Viral URI - ICD9: 465.9, ICD10: J06.9 - Discussed viral etiology and rationale for treatment. - Symptomatic treatment with prn analgesia - Supportive care with fluids and rest - given list of safe meds for colds during as well. Cristobal Stout PA-C CNOV Observed: 08/17/2017 Status: COMPLETED Source: [place] 1:00 PM [facility] REPOSITORY Office Visit (WSTR) MIMI JORGENSEN ([id number]) 1990 F Date Time Provider Department 08/17/17 1:00 PM CRISTOBAL STOTU ([place]AMAD[place]) [facility] During your visit today, we recorded the following information about you: Temperature Pulse Respiration Blood pressure 98.9 degrees 78/minute 16/minute 126/86 Weight 105.1 kg Cristobal Stout PA-C 08/17/2017 2:15 PM Signed Subjective HPI Pt presents with nasal congestion x 1 weeks and then with an ear ache x 1 day. She had a temp of 100.4 this morning so her OB recommended she be seen. She is 35 weeks . This is her first . No nvd or abdominal pain. No significant cough. Review of Systems Constitutional: Negative. HENT: Positive for congestion, ear pain and sore throat. Eyes: Negative. Respiratory: Negative for cough. Cardiovascular: Negative. Skin: Negative. All other systems reviewed and are negative. PAST MEDICAL HISTORY Diagnosis Date - PMH - PAST MEDICAL HISTORY OF exercise induced asthma - PMH - PAST MEDICAL HISTORY OF 09/08/07 normal color vision Current Outpatient Prescriptions: albuterol HFA 90 mcg/Actuation INHALATION inhaler Inhale 2 Puffs as instructed every 4 hours as needed. Disp: 2 Inhaler Rfl: 6 fluticasone propionate(FLOVENT HFA 44 MCG/ACTUATION AEROSOL INHALER) Take two(2) puffs twice daily via spacer then rinse and gargle mouth with water. Disp: 1 Rfl: 11 FE C 100 MG-250 MG TAB slow release takes as needed Disp: Rfl: 0 B COMPLETE TAB once daily Disp: Rfl: 0 azithromycin (ZITHROMAX Z-JOSE) 250 mg tablet Take 2 tablets day one, then, 1 tablet daily until gone. Disp: 1 Package Rfl: 0 promethazine (PHENERGAN) 25 mg ORAL tablet Take one(1) tablet every four(4) to six(6) hours as needed for nausea. (Patient not taking: No sig reported) Disp: 12 Tab Rfl: 0 montelukast sodium(SINGULAIR 10 MG TAB) Take one(1) tablet daily. (Patient not taking: No sig reported) Disp: 30 Rfl: 6 norethindrone-ethinyl estrad(ORTHO-NOVUM (28) 1 MG-35 MCG TAB) Disp: Rfl: 0 No current facility-administered medications for this visit. PAST SURGICAL HISTORY Procedure Laterality Date - NONE FAMILY HISTORY Problem Relation Age of Onset - Asthma Mother - Asthma Father - Asthma Brother - Heart Paternal Aunt age 34 [place] - cerebral hemmorage [Other] [OTHER] Paternal Grandmother - Heart Maternal Grandmother - Asthma Maternal Grandmother - Allergies Maternal Grandmother - Diabetes mggf/mggm - borderline diabetes [Other] [OTHER] Maternal Grandmother Social History Substance Use Topics - Smoking status: Passive Smoke Exposure - Never Smoker - Smokeless tobacco: Never Used Comment: mom in another room - Alcohol use No BP 126/86 (BP Site: Left Arm, BP Position: Sitting, BP Cuff Size: Large Adult) Pulse 78 Temp 37.2 ?C (98.9 ?F) (Right Tympanic) Resp 16 Wt 105.1 kg (231 lb 12.8 oz) SpO2 98% Objective Physical Exam Constitutional: She is oriented to person, place, and time and well-developed, well-nourished, and in no distress. HENT: Head: Normocephalic and atraumatic. Right Ear: Tympanic membrane, external ear and ear canal normal. Left Ear: External ear and ear canal normal. Tympanic membrane is erythematous and bulging. A middle ear effusion is present. Nose: Nose normal. Mouth/Throat: Uvula is midline and mucous membranes are normal. Eyes: Conjunctivae are normal. Neck: Normal range of motion. Neck supple. Cardiovascular: Normal rate, regular rhythm and normal heart sounds. Pulmonary/Chest: Effort normal and breath sounds normal. Neurological: She is alert and oriented to person, place, and time. Skin: Skin is warm and dry. No rash noted. Psychiatric: Affect and judgment normal. Nursing note and vitals reviewed. ASSESSMENT/PLAN: 1. Acute otitis media, left - ICD9: 382.9, ICD10: H66.92 (primary diagnosis) - Will begin treatment with Zithromax pack as directed - Supportive care with plenty of fluids, rest, and analgesia prn. - Follow up in one week if symptoms persist or worsen. 2. Viral URI - ICD9: 465.9, ICD10: J06.9 - Discussed viral etiology and rationale for treatment. - Symptomatic treatment with prn analgesia - Supportive care with fluids and rest - given list of safe meds for colds during as well. Cirstobal Stout PA-C Referring Provider: SELF [[id number]] Allergies As of Date: 08/17/2017 Noted Allergy Reaction PENICILLINS 11/28/2004 4 - Hives SULFA (SULFONAMIDE ANTIBIOTICS) 11/28/2004 4 - Hives Date Reviewed: 08/17/2017 Reviewed by: Livia Ackerman Ma - Fully Assessed Reason for Visit: left ear pain [Other] Cmt: x 1 day with fever Primary Visit Diagnosis:Acute otitis media, left [H66.92] Other Visit Diagnosis:Viral URI [J06.9] Order(s):azithromycin (ZITHROMAX Z-JOSE) 250 mg tabletTake 2 tablets day one, then, 1 tablet daily until gone.Disp: 1 PackageRfl: 0 Prescriptions as of 08/17/2017 Sig: ALBUTEROL SULFATE HFA 90 MCG/* Inhale 2 Puffs as instructed * FLOVENT HFA 44 MCG/ACTUATION * Take two(2) puffs twice daily* FE C 100 MG-250 MG TABLET slow release takes as needed B COMPLETE TABLET once daily AZITHROMYCIN 250 MG TABLET Take 2 tablets day one, then,* PROMETHAZINE 25 MG TABLET Take one(1) tablet every four* Patient not taking: No sig reported SINGULAIR 10 MG TABLET Take one(1) tablet daily. Patient not taking: No sig reported ORTHO-NOVUM (28) 1 MG-35* Problem List As Of Date 08/17/2017 Noted Resolved SPRAIN OF KNEE AND LEG NOS [[id number]] INVALID FOR* SPRAIN OF ANKLE NOS [S93.409A] INVALID FOR* Prescriptions ordered this encounter Disp Refills Start End AZITHROMYCIN 250 MG TABLET 1 Pa* 0 08/17/2017 08/22/2017 Sig: Take 2 tablets day one, then, 1 tablet daily until gone. Encounter Status:Closed by CRISTOBAL STOUT PA-C on 08/17/17 GESTATIONAL GTT 3HR Collected: 07/16/2017 Status: F Source: [place] 100G 8:31 AM [facility] REPOSITORY Order Comment: Is Patient Fasting? Y TYPE CODE TESTS RESULT OUT OF RANGE REFERENCE UNITS LAB L501.0650 <105 mg/dL Normal GLU 69 GTT-FASTING Result Comment: GLUCOSE TOLERANCE TEST FOR Reference Interval GESTATIONAL DIABETES Fasting <105 mg/dL 1 hour <190 mg/dl 2 hour <165 mg/dl 3 hour <145 mg/dl LAB L501.0660 <190 mg/dL Normal GLU GTT- 1HR 115 LAB L501.0670 <165 mg/dL Normal GLU GTT- 2HR 108 LAB L501.0680 <145 L Normal GLU GTT- 3HR 46 Performed By: #### L500.4710 #### [facility] [address] [place], [address] GLUCOSE CHALLENGE GEST Collected: 07/05/2017 Status: F Source: [place] 1H 50G 3:35 PM [facility] REPOSITORY TYPE CODE TESTS RESULT OUT OF RANGE REFERENCE UNITS LAB L501.0250 70-140 mg/dL High GLU GEST 149 50g 1H Performed By: #### L501.0250 #### [facility] [address] [place], [address] CBC-COMPLETE BLOOD CNT Collected: 07/05/2017 Status: F Source: [place] NO DIFF 3:35 PM [facility] REPOSITORY TYPE CODE TESTS RESULT OUT OF RANGE REFERENCE UNITS LAB L100.1000 4.4-11.0 K/mm3 Normal WBC 10.8 LAB L100.1200 4.2-5.4 M/mm3 Normal RBC 4.57 LAB L100.1300 12.0-15.0 g/dl Normal HGB 13.4 LAB L100.1400 37-47 % Normal HCT 38.9 LAB L100.1500 81-99 fL Normal MCV 85.1 LAB L100.1600 27.0-32.0 pg Normal MCH 29.3 LAB L100.1700 32-36 g/gl Normal MCHC 34.4 LAB L100.1810 11.6-14.6 % Normal RDW CV 12.8 LAB L100.1820 35.1-43.9 fl Normal RDW SD 39.3 LAB L100.1900 150-450 K/mm3 Normal PLT 233 LAB L100.2000 6.2-12.0 fl Normal MPV 11.3 Performed By: #### L100.0500 #### [facility] [address] [place], [address] EMERGENCY DEPARTMENT Observed: 04/26/2017 Status: F Source: [place] SUMMARY 11:51 PM [facility] REPOSITORY [facility] Medical Records Department [address] [place] [address] Emergency Department Summary 04/26/17 2110 MR#: [id number] Acct: [id number] Name: MIMI JORGENSEN Rep #: [id number] : 1990 26 From: Jesica Delatorre MD PCP: Sherrie Duenas NP Status: REG ER - ER Visit Summary Date of Service: 04/26/17 Chief Complaint: Nausea, vomiting, diarrhea History of Present Illness: The patient is a 26 F who is currently 19 weeks . She reports onset of nausea, vomiting, and diarrhea last evening. She is having more diarrhea than vomiting. She reports her temperature earlier today was 99.0. She took Tylenol around 7 PM tonight for some body aches and headache. She denies having cough or congestion. Her significant other had similar symptoms last week. Patient reports the OB nurse when her to come in for fluids. They had also talked about calling her in Tamiflu. Physical Examination: Blood pressure is 129/77, temperature 98.9, heart rate 95, respiratory rate 16, pulse ox 96% on room air. Patient sitting upright in bed in no acute distress. She is nontoxic appearing. Head neck examination is unremarkable. Heart is regular rate and rhythm. No lung sounds are clear. Abdomen is soft mild epigastric tenderness. There is no guarding or rebound. Hypoactive bowel sounds are noted. Test Results: heart tones are measured at 140. CBC reveals normal white count with 83% neutrophils. Chemistry studies were potassium of 3.4. Urinalysis shows 15 ketones. Influenza swab is negative. Emergency Department Course and Treatment: She was given IV fluids and Zofran here. She is able to tolerate p.o. liquids. She be discharged with a prescription for Zofran. I did speak with Dr. Anand. There is no need to start the patient on Tamiflu at this time. Treatment Plan: [] Disposition: Discharge Impression: Viral gastroenteritis This note was generated with [employer] dictation software. It may contain incorrect words, spelling, and punctuation that were not noted in review of the chart prior to signing ED Disposition - Plan for ED Patient: Chief Complaint: Nausea/Vomiting/Diarrhea Referrals: Sherrie Duenas [Primary Care Provider] - What to do if you have Problems For any increased pain, shortness of breath, bleeding, nausea or vomiting, chest pain, or any unexpected problems, contact your Primary Care Provider. Call [facility] ([phone]) or report to the closest Emergency Room. Call 911 if necessary. 04/26/17 1451 <Electronically signed by Jesica Delatorre MD> Date Jesica Delatorre MD Cosigner Signature (If Indicated): Date CC: Sherrie Duenas NP DISCHARGE INSTRUCTION Observed: 04/26/2017 Status: F Source: [place] 11:40 PM [facility] REPOSITORY [facility] Medical Records Department [address] [place] [address] Discharge Instruction 04/26/17 2339 MR#: [id number] Acct: [id number] Name: MIMI JORGENSEN Rep #: [id number] : 1990 26 From: Jesica Delatorre MD PCP: Sherrie Duenas NP Status: REG ER ED Disposition - Plan for ED Patient: Disposition: Home or Assisted Living Chief Complaint: Nausea/Vomiting/Diarrhea Instructions: ED Gastroenteritis Viral Prescriptions: Ondansetron [Zofran Odt] 4 mg PO Q8H PRN PRN #10 tablet PRN Reason: Nausea Referrals: Sherrie Duenas [Primary Care Provider] - Daniel Marcelino MD [STAFF PHYSICIAN] - What to do if you have Problems For any increased pain, shortness of breath, bleeding, nausea or vomiting, chest pain, or any unexpected problems, contact your Primary Care Provider. Call [facility] ([phone]) or report to the closest Emergency Room. Call 911 if necessary. 04/26/17 0310 <Electronically signed by Jesica Delatorre MD> Date Jesica Delatorre MD Cosigner Signature (If Indicated): Date CC: Sherrie Duenas NP URINALYSIS, COMPLETE Collected: 04/26/2017 Status: F Source: [place] 10:12 PM [facility] REPOSITORY Order Comment: Order Date: 04/26/17 How was Urine Obtained? CLEAN CATCH TYPE CODE TESTS RESULT OUT OF RANGE REFERENCE UNITS LAB L400.3000 Yellow COLOR Normal Yellow LAB L400.3050 Clear Normal CLARITY Clear LAB L400.3200 Normal mg/dl Normal GLUCOSE, UR Normal LAB L400.3300 Negative mg/dL Normal BILIRUBIN URINE Negative LAB L400.3400 Negative mg/dl High 15 KETONE UR LAB L400.3465 1.002-1.030 Normal SP.GR. DIPSTX 1.020 LAB L400.3550 5.0 - 8.0 pH UR Normal 6.0 LAB L400.3600 Negative mg/dl High PROT 30 DIPSTX LAB L400.3700 Normal mg/dl Normal UROBILI Normal LAB L400.3750 Negative Normal NITRITE UR Negative LAB L400.3780 Negative /ul Normal OCCULT BLOOD-UR Negative LAB L400.3800 Negative /ul High LEUK 25 ESTERASE LAB L400.4050 0-5 /hpf WBC Normal 0-5 SEEN LAB L400.4100 0-5 /hpf 0 Normal RBC-UA SEEN LAB L400.4150 5-10 /hpf SQUAM Normal EPI 0-5 SEEN LAB L400.4300 None Seen /hpf 1+ Normal BACTERIA LAB L400.4350 <or=2+ /hpf 3+ Normal MUCUS, URINE Performed By: #### L400.0001 #### [facility] [address] [facility] [place], [place], [address] Observed: 04/26/2017 Status: F Source: [place] INFLUENZA A+B (RAPID 9:15 PM [facility]) REPOSITORY Order Date: 04/26/17 FLU A/B Rapid Negative test results should be confirmed by culture. Order Rapid Viral Culture for Influenzae A+B ([id number]) if clinically indicated. Influenza Ag, Direct Presumptive NEGATIVE for Influenza A/B Antigen (See Note) Performed By: #### M101.0101 #### [facility] [address] [facility], [address] CBC W/DIFF, AUTOMATED Collected: 04/26/2017 Status: F Source: [place] 9:10 PM [facility] REPOSITORY TYPE CODE TESTS RESULT OUT OF RANGE REFERENCE UNITS LAB L100.1000 4.4-11.0 K/mm3 Normal WBC 9.3 LAB L100.1200 4.2-5.4 M/mm3 Normal RBC 4.69 LAB L100.1300 12.0-15.0 g/dl Normal HGB 13.5 LAB L100.1400 37-47 % Normal HCT 39.9 LAB L100.1500 81-99 fL Normal MCV 85.1 LAB L100.1600 27.0-32.0 pg Normal MCH 28.8 LAB L100.1700 32-36 g/gl Normal MCHC 33.8 LAB L100.1810 11.6-14.6 % Normal RDW CV 13.1 LAB L100.1820 35.1-43.9 fl Normal RDW SD 40.4 LAB L100.1900 150-450 K/mm3 Normal PLT 194 LAB L100.2000 6.2-12.0 fl Normal MPV 10.4 LAB L100.2100 47-70 % High NEUT% 83.1 LAB L100.2200 19-41 % Low LY% 9.6 LAB L100.2300 0-10 % Normal MONO% 6.9 LAB L100.2400 0-5 % Normal EO% 0.1 LAB L100.2500 0-1 % Normal BASO% 0.1 LAB L100.2550 0.0-0.9 % Normal IM GRAN % 0.200 Result Comment: IG% - Immature Granulocytes (promyelocytes, myelocytes and metamyelocytes) > 1% indicates that a LEFT SHIFT is Present. LAB L100.2620 2.0-7.7 X10 3/uL Normal Absolute Neut 7.7 LAB L100.2720 0.83-4.51 X10 3/ul Normal Absolute Lymph 0.89 Performed By: #### L100.0100 #### [facility] [address] [place] [address]. [place], [place], [address] BASIC METABOLIC Collected: 04/26/2017 Status: F Source: [place] PROFILE (BMP) 9:10 PM [facility] REPOSITORY TYPE CODE TESTS RESULT OUT OF RANGE REFERENCE UNITS LAB L501.0100 74-106 mg/dL Normal GLU 90 Result Comment: Please note revised GLUCOSE reference range effective 2017. LAB L501.1000 7-18 mg/dL Normal BUN 8 LAB L501.1100 0.55-1.02 mg/dL Normal CREAT,SERUM 0.61 Result Comment: The validity of the calculated GFR AND GFRAA in patients over 70 years has not been determined. Clinical correlation is essential. LAB L501.1110 >60 mL/min Normal EST GFR 126 Result Comment: Non- GFR Calc LAB L501.1115 >60 mL/min Normal EST GFR - AA 153 Result Comment: GFR Calc LAB L501.1255 ml/min Normal Estimated CRCL 137.10 LAB L501.1300 10-20 RATIO BUN/CRE Normal 13.1 LAB L501.2200 8.5-10 mg/dL .1 CA Normal 8.6 LAB L501.5300 136-14 mmol/L 5 NA Normal 138 LAB L501.5600 3.5-5. mmol/L Low 1 K 3.4 LAB L501.5900 98-107 mmol/L CL Normal 105 LAB L501.6100 21.0-3 mmol/L 2.0 CO2 Normal 24.0 LAB L501.6200 5-15 GAP Normal 9 Performed By: #### L500.2500 #### [facility] [address] [facility]. [place], [place], [address] ALLERGIES ALLERGIES DATE TYPE / CODE NAME / CODE REACTION SEVERITY SOURCE 09/25/2017 Drug Penicillins/[id number] Hives Unknown Chrissy Allergy/416 0476(RXNORM) Community 423991([facility] ED CT) Repository 09/25/2017 Drug Sulfa (Sulfonamide Rash Unknown Chrissy Allergy/416 Antibiotics)/F0010 [facility]ly [facility] 152331([facility] [facility] [address]17[address]Formerly [facility] ED CT) Repository 05/22/2014 Drug sulfur Rash Unknown [place] Allergy/416 dioxide/[id number] [facility] 599317([place] [facility] ([facility] ED CT) Repository 11/28/2004 Drug PENICILLINS HIVES [facility] Class/16512 [address] [place] 1003(SNOMED Repository CT) 11/28/2004 Drug SULFA (SULFONAMIDE HIVES [facility] Class/97998 ANTIBIOTICS) [facility] [place] 1003(SNOMED Repository CT) ENCOUNTERS ENCOUNTERS ADMIT/DISCHARGE ACCOUNT ADMITTING ENCOUNTER LOCATION SOURCE NUMBER CLASS 03/25/2018 [id number] [facility] ing:PT Repository 02/14/2018 [id number] [facility] ing:LABSPEC Repository 01/29/2018 [id number] Ambulatory Building:[facility] OHIP Practices Repository 09/26/2017/09/29/19 [id number] Daniel Marcelino Inpatient [facility] 18 Encounter [facility] ing:WPRoom: Repository XL897Rrk: 1 08/28/2017 [id number] [facility]ulatory [facility] ing:LABSPEC Repository 08/17/2017/08/21/19 [id number] Ambulatory [address] Repository 07/16/2017 [id number] [facility] ing:LAB Repository 07/05/2017 [id number] [facility] ing:WOBLAB Repository 04/26/2017/04/26/19 [id number] Emergency [address] ing:ED Repository PAYERS PAYERS ENCOUNTER GUARANTOR PAYER SUBSCRIBER SOURCE 03/25/2018 MIMI Nicole Primary BRADAE B [place] [id number] TR Insurance:ANTHEMPolic SWEENEYDOB: [address] Number: [id number] Hospital [address]Ugr: 330 [id number] Repository [phone] () cami Date:[id number] [place] [address]NO: 03/25/2018 Secondary NOT GIVENUNK Chrissy Insurance:SELF PAY [facility] Number: Effective Repository Date:2018-03-03 02/14/2018 TEXMANISHA B Primary BRADAE B Chrissy [id number] TR Insurance:ANTHEMPolic SWEENEYDOB: [address] y Number: [id number] Hospital [address]Swd: (330 [id number] Repository [phone] () cami Date:9137-06-58TL [address], [place] [address]VJ: 02/14/2018 Secondary NOT GIVENUNK [place] Insurance:SELF PAY [facility] Number: Effective Repository Date:2018-02-14 01/29/2018 Mimi Nicole Primary Debbie B OHIP Practices SweeneyDOB: Insurance:[place] SweeneyDOB: Repository [facility] Number: [id number] [facility] [id number] [address] [place] [address] [place] [address]Ttb: (330) Date:7838-02-45Taag 16[address]Aks: Name:[phone] () ()Tel: [phone] [id number] garcia [phone] () [id number]: 01/29/2018 Secondary Susan J OHIP Practices Insurance:Health SweeneyDOB: Repository [facility] [id number] Number: [place]via [address] [place] [id number] [address]Fgu: (330) Date:2008-05-02 - [phone] (HP) [id number] Name:[facility] 367[address]GC NOT USE, [place], [place] [address]PP: 01/29/2018 Tertiary Susan J [place] Practices Insurance:Medical SweeneyDOB: Repository [facility] [id number] Number: Lesvia [place] [id number] [address]Usy: (330) Date: - [phone] () [id number] Name:[facility] [address]Gkflpqcwu, [place] [address]JV: 09/26/2017 BRIELE B Primary BRIELE B Chrissy [id number] TR Insurance:ANTHEMPolic SWEENEYDOB: [address] Number: [id number] Hospital [address]Itg: 330) [id number] Repository [phone] () cami Date:[id number] [address]HQBDAKRS[address]BI [address]NAV[address] [address]HH: 09/26/2017 Secondary NOT GIVENUNK [place] Insurance:SELF PAY [facility] Number: Effective Repository Date:2017-09-25 08/28/2017 BRIELE B Primary BRIELE B [place] [id number] TR Insurance:ANTHEMPolic SWEENEYDOB: [address] [place] Number: [id number] Hospital [address]Mkq: (330) [id number] Repository [phone] (HP) cami Date:6416-17-28RK [address]NUAYGQP, [place] [address]TX: 08/28/2017 Secondary NOT GIVENUNK Chrissy Insurance:SELF PAY [facility] Number: Effective Repository Date:2017-08-28 07/16/2017 BRIELE B Primary BRIELE B [place] [id number] TR Insurance:ANTHEMPolic SWEENEYDOB: [address] y Number: [id number] Hospital [address]Cmx: (330) [id number] Repository [phone] () cami Date:5853-97-03ZL [address], [place] [address]XT: 07/16/2017 Secondary NOT GIVENUNK Chrissy Insurance:SELF PAY [facility] Number: Effective Repository Date:2017-07-08 07/05/2017 BRIELE B Primary BRIELE B Chrissy [id number] TR Insurance:ANTHEMPolic SWEENEYDOB: [address] y Number: [id number] Hospital [address]Def: (330) [id number] Repository [phone] () cami Date:1814-00-09ZQ [address]UMUCVSY, [place] [address]ZV: 07/05/2017 Secondary NOT GIVENUNK Chrissy Insurance:SELF PAY [facility] Number: Effective Repository Date:2017-07-05 04/26/2017 BRIELE B Primary BRIELE B Chrissy [id number] TR Insurance:ANTHEMPolic SWEENEYDOB: [address] [place] Number: [id number] Hospital [address]Lty: (742) [id number] Repository [phone] () cami Date:4303-91-44GP [address]LGCYHVM, [place] [address]DJ: 04/26/2017 Secondary NOT GIVENUNK Chrissy Insurance:SELF PAY [facility]: Effective Repository Date:2017-04-26
--- OUTSIDE RECORDS SUMMARY | 2018-05-21 05:31 | XMS RPT_ITS | Continuity of Care Document ---
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 [facility] Runruxintb1093 [place], [address] INR 0.9 (Normal) PROTIME 12.4 s (Normal) Range: 11.7-14.9 21-Won-76450:00 Serum Creatinine AND GFR Comments: [facility] Axpzxbzjcd0404 [place], [address] Estimated CRCL 87.51 ml/min (Normal) EST GFR - AA 95 mL/min (Normal) Comments: GFR Calc EST GFR 78 mL/min (Normal) Comments: Non- GFR Calc CREAT,SERUM 0.92 mg/dL (Normal) Range: 0.55-1.02 Comments: The validity of the calculated GFR AND GFRAA in patients over70 years has not been determined. Clinical correlation isessential. :00 Uric Acid Comments: [facility] Cztoblilzi0741 [place], [address] URIC 6.9 mg/dL (Abnormal) Range: 2.6-6.0 Comments: The drugs N-Acetylcysteine and Metamizole may falselydepress this assay. :00 Urinalysis, Complete Comments: How was Urine Obtained? CLEAN [facility] Xsvpwtemse7028 [address]. [place], [id number] MUCUS, URINE 0 SEEN {/hpf} (Normal) BACTERIA RARE {/hpf} (Normal) SQUAM EPI 0-5 SEEN {/hpf} (Normal) Range: 5-10 RBC-UA 0 SEEN {/hpf} (Normal) Range: 0-5 WBC 0 SEEN {/hpf} (Normal) Range: 0-5 LEUK ESTERASE Negative /ul (Normal) OCCULT BLOOD-UR 25 /ul (Abnormal) NITRITE UR Negative (Normal) UROBILI Normal mg/dL (Normal) PROT DIPSTX 30 mg/dL (Abnormal) pH UR 6.5 (Normal) Range: 5.0 - 8.0 SP.GR. DIPSTX 1.015 (Normal) Range: 1.002-1.030 KETONE UR Negative mg/dL (Normal) BILIRUBIN URINE Negative mg/dL (Normal) GLUCOSE, UR Normal mg/dL (Normal) CLARITY Sl. Cloudy (Normal) COLOR Yellow (Normal) 62-Dkf-409103:15 (ROM) Rupture Of Membranes Comments: [facility] Ybchbfwqes4836 [place], [address] ROM Negative (Normal) Comments: Amniotic fluid not present indicates No Rupture of FetalMembranes at time of specimen collection. 11-Eck-60388:00 Culture, Group B Streptococcus Comments: [facility] Jouolmxqbj9385 [address]. [place], [id number] CUGRB See Note (Normal) Comments: DARLEEN CultureGroup B Beta Streptococcus is not isolated. :00 Group B Strep DNA By PCR Comments: Comments: PATIENT ALLERGY TO PENICILLIN AND SULFA.Source: [facility] Lxoxahjyyg5465 [place], [address] GBS TEST RESULT Negative (Normal) 56-Zwp-21241:31 Gestational GTT 3HR 100g Comments: Is Patient Fasting? [facility] Eqnukawrds5395 [place], [address] GLU GTT- 3HR 46 L (Normal) GLU GTT- 2HR 108 mg/dL (Normal) GLU GTT- 1HR 115 mg/dL (Normal) GLU GTT-FASTING 69 mg/dL (Normal) Comments: GLUCOSE TOLERANCE TEST FOR Reference Interval GESTATIONAL DIABETES Fasting <105 mg/dL 1 hour <190 mg/dl 2 hour <165 mg/dl 3 hour <145 mg/dl 53-Fmh-441542:12 Urinalysis, Complete Comments: Order Date: 04/26/17How was Urine Obtained? CLEAN [facility] Liccelnnvc2954 [place], [address] MUCUS, URINE 3+ {/hpf} (Normal) BACTERIA 1+ {/hpf} (Normal) SQUAM EPI 0-5 SEEN {/hpf} (Normal) Range: 5-10 RBC-UA 0 SEEN {/hpf} (Normal) Range: 0-5 WBC 0-5 SEEN {/hpf} (Normal) Range: 0-5 LEUK ESTERASE 25 /ul (Abnormal) OCCULT BLOOD-UR Negative /ul (Normal) NITRITE UR Negative (Normal) UROBILI Normal mg/dL (Normal) PROT DIPSTX 30 mg/dL (Abnormal) pH UR 6.0 (Normal) Range: 5.0 - 8.0 SP.GR. DIPSTX 1.020 (Normal) Range: 1.002-1.030 KETONE UR 15 mg/dL (Abnormal) BILIRUBIN URINE Negative mg/dL (Normal) GLUCOSE, UR Normal mg/dL (Normal) CLARITY Clear (Normal) COLOR Yellow (Normal) 75-Xqm-862091:10 Basic Metabolic Profile (BMP) Comments: [facility] Ezoblnixkr3943 [place], [address] GAP 9 (Normal) Range: 5-15 CO2 24.0 mmol/L (Normal) Range: 21.0-32.0 CL 105 mmol/L (Normal) Range: 98-107 K 3.4 mmol/L (Abnormal) Range: 3.5-5.1 NA 138 mmol/L (Normal) Range: 136-145 CA 8.6 mg/dL (Normal) Range: 8.5-10.1 BUN/CRE 13.1 {RATIO} (Normal) Range: 10-20 Estimated CRCL 137.10 ml/min (Normal) EST GFR - AA 153 mL/min (Normal) Comments: GFR Calc EST GFR 126 mL/min (Normal) Comments: Non- GFR Calc CREAT,SERUM 0.61 mg/dL (Normal) Range: 0.55-1.02 Comments: The validity of the calculated GFR AND GFRAA in patients over70 years has not been determined. Clinical correlation isessential. BUN 8 mg/dL (Normal) Range: 7-18 GLU 90 mg/dL (Normal) Range: 74-106 Comments: Please note revised GLUCOSE reference range ynhvrhfrd58/02/2018. 59-Cec-033852:10 CBC W/Diff, Automated Comments: [facility] Owtpmrqcvh3140 [address] [place], [place], [id number] Absolute Lymph 0.89 {X10_3/ul} (Normal) Range: 0.83-4.51 Absolute Neut 7.7 {X10_3/uL} (Normal) Range: 2.0-7.7 IM GRAN % 0.200 % (Normal) Range: 0.0-0.9 Comments: IG% - Immature Granulocytes (promyelocytes, myelocytes andmetamyelocytes) > 1% indicates that a LEFT SHIFT is Present. BASO% 0.1 % (Normal) Range: 0-1 EO% 0.1 % (Normal) Range: 0-5 MONO% 6.9 % (Normal) Range: 0-10 LY% 9.6 % (Abnormal) Range: 19-41 NEUT% 83.1 % (Abnormal) Range: 47-70 MPV 10.4 fL (Normal) Range: 6.2-12.0 PLT 194 K/mm3 (Normal) Range: 150-450 RDW SD 40.4 fL (Normal) Range: 35.1-43.9 RDW CV 13.1 % (Normal) Range: 11.6-14.6 MCHC 33.8 {g/gl} (Normal) Range: 32-36 MCH 28.8 pg (Normal) Range: 27.0-32.0 MCV 85.1 fL (Normal) Range: 81-99 HCT 39.9 % (Normal) Range: 37-47 HGB 13.5 g/dL (Normal) Range: 12.0-15.0 RBC 4.69 {M/mm3} (Normal) Range: 4.2-5.4 WBC 9.3 K/mm3 (Normal) Range: 4.4-11.0 44-Ynj-895353:19 CBC W/Diff, Automated Comments: [facility] Eqdpbjpjzi6167 [address]. [place], [place], [id number] Absolute Lymph 2.47 {X10_3/ul} (Normal) Range: 0.83-4.51 Absolute Neut 7.0 {X10_3/uL} (Normal) Range: 2.0-7.7 IM GRAN % 0.200 % (Normal) Range: 0.0-0.9 Comments: IG% - Immature Granulocytes (promyelocytes, myelocytes andmetamyelocytes) > 1% indicates that a LEFT SHIFT is Present. BASO% 0.2 % (Normal) Range: 0-1 EO% 1.6 % (Normal) Range: 0-5 MONO% 7.2 % (Normal) Range: 0-10 LY% 23.6 % (Normal) Range: 19-41 NEUT% 67.2 % (Normal) Range: 47-70 MPV 11.7 fL (Normal) Range: 6.2-12.0 PLT 231 K/mm3 (Normal) Range: 150-450 RDW SD 38.5 fL (Normal) Range: 35.1-43.9 RDW CV 12.8 % (Normal) Range: 11.6-14.6 MCHC 34.5 {g/gl} (Normal) Range: 32-36 MCH 28.6 pg (Normal) Range: 27.0-32.0 MCV 83.0 fL (Normal) Range: 81-99 HCT 38.0 % (Normal) Range: 37-47 HGB 13.1 g/dL (Normal) Range: 12.0-15.0 RBC 4.58 {M/mm3} (Normal) Range: 4.2-5.4 WBC 10.5 K/mm3 (Normal) Range: 4.4-11.0 :19 Hepatitis B Surface Ag Comments: [facility] (refer to report for specific site)refer to report for address and phone number HB SURF AG Negative (Normal) Comments: Performed at: [address] [id number] Director: Jalen Pelletier PhD, Phone: [phone] 40-Xgm-134603:19 Hepatitis C Antibodies Comments: [facility] (refer to report for specific site)refer to report for address and phone number HEP C AB <0.1 {s/co_ratio} (Normal) Range: 0.0-0.9 Comments: Negative: < 0.8 Indeterminate: 0.8 - 0.9 Positive: > 0.9 The CDC recommends that a positive HCV antibody result be followed up with a HCV Nucleic Acid Amplification test (692387). :19 HIV Screen 4TH GEN W/Confirm Comments: [facility] (refer to report for specific site)refer to report for address and phone number HIV1/0/2 SCREEN Non Reactive (Normal) :19 Nicotine Urine Drug Screen Comments: List of Drugs Taken or Suspected? [facility] Qnkokrxjmi7688 [place], [address] COT DRG SCREEN Positive (Abnormal) Comments: Cotinine is the first-stage metabolite of Nicotine. TO BE CONFIRMED (Normal) Comments: CONFIRMATORY TESTING FOR ALL POSITIVE URINE DRUG SCREENRESULTS WILL ONLY BE SENT OUT UPON PHYSICIAN ORDER.The results of Urine Drug Screen methods provide onlypreliminary analytical test results. A more specificalternate chemical method must be used in order to obtain aconfirmed analytical result. Gas chromatography/massspectrometery (GC/MS) is the preferred confirmatory method.Clinical consideration and professional judgement should beapplied to any drug of abuse test result, particularly whenpreliminary positive results are used. :19 RPR Comments: [address] [place], [address] ; Daniel Marcelino RPR NONREACTIVE (Normal) :19 T AND S-No Charge Comments: Reason for Type AND Screen/Red Cells: PRENATALSurgery? [facility] Ahtwvjjrsu[address] [place], [address] w/PNP Ab SCREEN GEL NEGATIVE (Normal) BLOOD TYPE GEL O POSITIVE (Normal) :19 Rubella IgG 34.9 {IU/mL} (Normal) Comments: [address] [place], [address] Comments: Antibody results Interpretation of Immune Status < 5 IU/ml Presumed Non-immune 5 - < 10 IU/ml Equivocal > or = 10 IU/ml Presumed Immune :19 Thyroid Stim Hormone (TSH) Comments: [address] [place], [address] TSH 0.85 {uIU/mL} (Normal) Range: 0.358-3.74 :19 Urinalysis, Routine (Dipstick) Comments: How was Urine Obtained? CLEAN [facility] Yoxnjpehtm5914 [place], [address] LEUK ESTERASE Negative /ul (Normal) OCCULT BLOOD-UR Negative /ul (Normal) NITRITE UR Negative (Normal) UROBILI Normal mg/dL (Normal) PROT DIPSTX Negative mg/dL (Normal) pH UR 7.0 (Normal) Range: 5.0 - 8.0 SP.GR. DIPSTX 1.010 (Normal) Range: 1.002-1.030 KETONE UR Negative mg/dL (Normal) BILIRUBIN URINE Negative mg/dL (Normal) GLUCOSE, UR Normal mg/dL (Normal) CLARITY Sl. Cloudy (Normal) COLOR Yellow (Normal) 93-Jkv-994520:19 Urine Drug Screen (VISTA) Comments: List of Drugs Taken or Suspected? [facility] Pmctgdvinr6490 [place], [address] THC NEGATIVE (Normal) PCP NEGATIVE (Normal) OPIATES NEGATIVE (Normal) METHADONE NEGATIVE (Normal) ECSTACY NEGATIVE (Normal) COCAINE NEGATIVE (Normal) BENZODIAZIPINE NEGATIVE (Normal) BARBITIURATES NEGATIVE (Normal) AMPHETAMINES NEGATIVE (Normal) VISTA UDS PH 6 (Normal) TO BE CONFIRMED (Normal) Comments: CONFIRMATORY TESTING FOR ALL POSITIVE URINE DRUG SCREENRESULTS WILL ONLY BE SENT OUT UPON PHYSICIAN ORDER.VISTA Urine Drug Screen methods provide only preliminaryanalytical test results. A more specific alternate chemicalmethod must be used in order to obtain a confirmedanalytical result. Gas chromatography/mass spectrometery(GC/MS) is the preferred confirmatory method. Clinicalconsideration and profe ssional judgement should be appliedto any drug of abuse test result, particularly whenpreliminary positive results are used.URINE TCA TESTING MUST BE ORDERED SEPARATELY. USE TESTMNEMONIC: [facility] 4-Mkn-601836:00 CT/NG [facility] BY PCR Comments: CYTOLOGY INFORMATION:- CLINICAL INFORMATION: - DATE LMP/MENOPAUSE: 274667 LMP- COLLECTION VIAL: Thin Prep Vial- FERRYBOAT DECKHAND SOURCE: CERVICAL/ENDOCERVICAL- COLLECTION TECHNIQUE: [facility] Xnsnhlngbj7899 [place], [address] NG by PCR Negative (Normal) Chlam Trac PCR Negative (Normal) 5-Aym-491732:00 PAP I-G w/rfx hrHPV Comments: CYTOLOGY INFORMATION:- CLINICAL INFORMATION: - DATE LMP/MENOPAUSE: 821146 LMP- COLLECTION VIAL: Thin Prep Vial- FERRYBOAT DECKHAND SOURCE: CERVICAL/ENDOCERVICAL- COLLECTION TECHNIQUE: BRUSH/SPATUL ASpecimen Co mment: [id number] Comment: No. of containers..01 ThinPrep VialLabCorp (refer to report for specific site)refer to report for address and phone number HPV RFLX Comment (Normal) Comments: The HPV DNA reflex criteria were not met with this specimenresult therefore, no HPV testing was performed.Performed at: [address] [id number] Director: Bhavani Restrepo MD, Phone: [phone] PAPSMR Comment (Normal) Comments: The Pap smear is a screening test designed to aid in thedetection of premalignant and malignant conditions of theuterine cervix. It is not a diagnostic procedure andshould not be used as the sole means of detecting cervicalcancer. Both false-positive and false-negative reports dooccur. COMM . (Normal) TEST METHOD Comment (Normal) Comments: This liquid based ThinPrep(R) pap test was screened withthe use of an image guided system. PERFORM Comment (Normal) Comments: Oxana Smith, Customer Sales Distributor (ASCP) ADEQ Comment (Normal) Comments: Satisfactory for evaluation. No endocervical component is identified.An endocervical component is not commonly seen in the patient. DIAGN Comment (Normal) Comments: NEGATIVE FOR INTRAEPITHELIAL LESION AND MALIGNANCY. 36-Orb-202793:22 hCG Titer Quant., Serum Comments: Date of Last Menstrual Period? 12/16/16[facility] Xphlkjhtbc5751 [place], [address] HCG QUANT. 5432 m[iU]/mL (Abnormal) 59-Etz-354734:24 Urinalysis, Office (76562) UA - LEUKOCYTE ESTERASE Negative (Normal) UA - NITRITE Negative (Normal) URINE UROBILINGN WILIAN TIMED Normal mg/dL (Normal) UA - PROTEIN Negative mg/dL (Normal) UA - PH 6 (Abnormal) UA - BLOOD Negative (Normal) UA - SPECIFIC GRAVITY 1.010 (Normal) UA - KETONES 15 mg/dL (Abnormal) UA - BILIRUBIN Negative (Normal) UA - GLUCOSE Negative (Normal) 1-Fpp-121224:15 CT/NG [facility] BY PCR Comments: [facility] Zzmffvtlae3442 [place], [address] ; another doc NG by PCR Negative (Normal) [facility] PCR Negative (Normal) 3-Chg-582809:00 PAP I-G w/rfx hrHPV Comments: CYTOLOGY INFORMATION:- CLINICAL INFORMATION:- DATE LMP/MENOPAUSE: 11/26/15 LMP- COLLECTION VIAL: Thin Prep Vial- FERRYBOAT DECKHAND SOURCE: CERVICAL/ENDOCERVICAL- COLLECTION TECHNIQUE: BRUSH/SPATULASpecimen Comment: [place] [id number] Comment: No. of containers..01 CYTYC Thin Prep VialLabCorp (refer to report for specific site)refer to report for address and phone number HPV RFLX Comment (Normal) Comments: The HPV DNA reflex criteria were not met with this specimenresult therefore, no HPV testing was performed.Performed at: [address] [id number] Director: Bhavani Restrepo MD, Phone: [phone] PAPSMR Comment (Normal) Comments: The Pap smear is a screening test designed to aid in thedetection of premalignant and malignant conditions of theuterine cervix. It is not a diagnostic procedure andshould not be used as the sole means of detecting cervicalcancer. Both false-positive and false-negative reports dooccur. COMM . (Normal) TEST METHOD Comment (Normal) Comments: This liquid based ThinPrep(R) pap test was screened withthe use of an image guided system. Path prov. ICD9 Comment (Normal) Comments: R87.5 PERFORM Comment (Normal) Comments: Clarissa Hawk, Customer Sales Distributor (ASCP) ADEQ Comment (Normal) Comments: Satisfactory for evaluation. No endocervical component is identified. DIAGN Comment (Normal) Comments: NEGATIVE FOR INTRAEPITHELIAL LESION AND MALIGNANCY.FUNGAL ORGANISMS MORPHOLOGICALLY CONSISTENT WITH TRINA SPECIES AREPRESENT. 65-Pbv-920224:41 Rapid Strep Test, Office (21341) Rapid Strep Test, Office Negative (Normal) 51-Vcz-99888:30 PAP I-G w/rfx hrHPV Comments: CYTOLOGY INFORMATION:- CLINICAL INFORMATION:- DATE LMP/MENOPAUSE: LMP- COLLECTION VIAL: Thin Prep Vial- FERRYBOAT DECKHAND SOURCE: CERVICAL/ENDOCERVICAL- COLLECTION TECHNIQUE: BRUSH/SPATULASpecimen Comme nt: [id number] Comment: No. of containers..01 CYTYC Thin Prep VialLabCorp (refer to report for specific site)refer to report for address and phone number; Ordered by another doctor HPV RFLX Comment (Normal) Comments: The HPV DNA reflex criteria were not met with this specimenresult therefore, no HPV testing was performed.Performed at: [address] [id number] Director: Felton River MD, Phone: [phone] PAPSMR Comment (Normal) Comments: The Pap smear is a screening test designed to aid in thedetection of premalignant and malignant conditions of theuterine cervix. It is not a diagnostic procedure andshould not be used as the sole means of detecting cervicalcancer. Both false-positive and false-negative reports dooccur. COMM . (Normal) TEST METHOD Comment (Normal) Comments: This liquid based ThinPrep(R) pap test was screened withthe use of an image guided system. PERFORM Comment (Normal) Comments: Breanna Patel, Customer Sales Distributor (ASCP) ADEQ Comment (Normal) Comments: Satisfactory for evaluation. Endocervical and/or squamous metaplasticcells (endocervical component) are present. DIAGN Comment (Normal) Comments: NEGATIVE FOR INTRAEPITHELIAL LESION AND MALIGNANCY. 5-Tyk-745789:15 Free T3 Comments: Test performed at:[facility] Ksnrlrnfbr5354 [place] [address] FREE T3 3.2 pg/mL (Normal) Range: 2.18-3.98 0-Kdx-123307:15 Hemoglobin A1c Comments: Test performed at:[facility] Iwywstqeea5305 [place] [address] HGB A1C 5.2 % (Normal) Range: 4.2-6.3 2-Ohc-275384:15 ,Serum,hCG Quali. Comments: Test performed at:[facility] Rpsmcusvwa8098 [place] [address] HCGSQUAL NEGATIVE {Negative} (Normal) Range: 0-9 Nonpreg HCG Qual triggr < 1 m[iU]/mL (Normal) 9-Rgv-524543:15 T4 Free Direct Comments: Test performed at:[facility] [address]fkiocuci[address] [place] [address] T4 FREE DIRECT 1.01 ng/dL (Normal) Range: 0.76-1.46 6-Upd-587405:15 Thyroid Stim Hormone (TSH) Comments: Test performed at:[facility] Mbzhirqhcq27[address] [place] [address] TSH 1.06 {uIU/mL} (Normal) Range: 0.358-3.74 43-Wxl-263785:29 Rapid Strep Test, Office (20833) Rapid Strep Test, Office Negative (Normal) 5-Wha-281865:05 Comprehensive Metabolic Profil Comments: Test performed at:[facility] [address]jnnutq[address] [place] [address] [place] [address] GAP 8 (Normal) Range: 5-15 CO2 22.0 mmol/L (Normal) Range: 21.0-32.0 CL 109 mmol/L (Abnormal) Range: 98-107 K 3.7 mmol/L (Normal) Range: 3.5-5.1 NA 139 mmol/L (Normal) Range: 136-145 T BILI 0.20 mg/dL (Normal) Range: 0.00-4.00 ALT 20 U/L (Normal) Range: 12-78 ALK P 59 U/L (Normal) Range: 50-136 AST 15 U/L (Normal) Range: 15-37 CA 9.3 mg/dL (Normal) Range: 8.5-10.1 A/G 1.0 {RATIO} (Normal) Range: 0.9-2.4 GLOB 3.7 g/dL (Normal) Range: 2.7-4.2 ALB 3.8 g/dL (Normal) Range: 3.4-5.0 T PROT 7.5 g/dL (Normal) Range: 6.4-8.2 BUN/CRE 13.3 {RATIO} (Normal) Range: 10-20 EST GFR - AA 101 mL/min (Normal) EST GFR 83 mL/min (Normal) CREAT,SERUM 0.9 mg/dL (Normal) Range: 0.6-1.0 BUN 12 mg/dL (Normal) Range: 7-18 GLU 84 mg/dL (Normal) Range: 70-110 7-Fce-243316:05 Thyroid Stim Hormone (TSH) Comments: Test performed at:[facility] Hseqdwqjbu0[address] [place] [address] TSH 1.36 {uIU/mL} (Normal) Range: 0.358-3.74 1-Cjz-018585:17 Urine Test, Office (39450) Urine Test, Office Negative (Normal) 7-Ipe-132291:17 Urinalysis, Office (00128) UA - LEUKOCYTE ESTERASE Negative (Normal) UA - NITRITE Negative (Normal) URINE UROBILINGN WILIAN TIMED Normal mg/dL (Normal) UA - PROTEIN Negative mg/dL (Normal) UA - PH 6.0 (Normal) UA - BLOOD non-hemolyzed trace (Normal) UA - SPECIFIC GRAVITY 1.030 (Abnormal) UA - KETONES Negative mg/dL (Normal) UA - BILIRUBIN Negative (Normal) UA - GLUCOSE Negative (Normal) 41-Cpi-871911:45 PAPIG5 Comments: CYTOLOGY INFORMATION:- CLINICAL INFORMATION:- DATE LMP/MENOPAUSE: LMP08/31/13- COLLECTION VIAL: Thin Prep Vial- FERRYBOAT DECKHAND SOURCE: CERVICAL/ENDOCERVICAL- COLLECTION TECHNIQUE: BRUSH/SPATULASpecimen Comment: [id number] Comment: No. of containers..01 CYTYC Thin Prep Vial tHPVRFLX Comment (Normal) Comments: The HPV DNA reflex criteria were not met with this specimenresult therefore, no HPV testing was performed.Performed at: [address] [id number] Director: Felton River MD, Phone: [phone] [facility] Comment (Normal) Comments: The Pap smear is a screening test designed to aid in thedetection of premalignant and malignant conditions of theuterine cervix. It is not a diagnostic procedure andshould not be used as the sole means of detecting cervicalcancer. Both false-positive and false-negative reports dooccur. tCOM2 . (Normal) tPAPIGTM Comment (Normal) Comments: This liquid based ThinPrep(R) pap test was screened withthe use of an image guided system. tADEQ Comment (Normal) Comments: Satisfactory for evaluation. No endocervical component is identified. tPERFORM Comment (Normal) Comments: Jese Ritter, Customer Sales Distributor (ASCP) tDIAG Comment (Normal) Comments: NEGATIVE FOR INTRAEPITHELIAL LESION AND MALIGNANCY. :00 CUST Comments: Comments: UNK SHIGA See Note (Normal) CULST See Note (Normal) Comments: No Salmonella, Shigella, Yersinia or Campylobacter isolated. No significant amount of Staphylococcus aureus or yeast-like organisms isolated. 1-Ijo-604853:17 OP See Note (Normal) Comments: OVA AND PARASITES EXAM, ROUTINE These results were obtained using wet preparation(s) and trichrome stained smear. This test does not include testing for Crytosporidium parvum, Cyclo spora, or Mi crosporidia. TESTING PERFORMED AT [facility]. ORIGINAL REPORT ON FILE IN LAB CONTAINS ADDITIONAL TEST SITE INFORMATION. Ova/Parasite Exam NO OVA, CYSTS, OR PARASITES FOUND. :00 STOB See Note (Normal) Comments: Comments: UNK Comments: Occult Blood Negative :00 WBCST See Note (Normal) Comments: Comments: UNK Comments: Fecal WBC Lactoferrin Negative: No Fecal WBC Lactoferrin present 21-Zsw-521508:39 HPV automatic Comments: Source.............Cervical;EndocervicalNo. of containers..01 CYTYC Thin Prep VialPATIENT NOT FASTINGPERFORMED BY: [facility] [place] [id number] BY: =G L ([id number]) [facility] [address] [place] [address] [place] [id number] Information: [id number] HPV, high-risk Positive Comments: This high-risk HPV test detects thirteen high- risk types(16/18/31/33/35/39/45/51/52/56/58/59/68) without differentiation. . (Abnormal) Note: PAPSMR (Normal) Comments: The Pap smear is a screening test designed to aid in the detection ofpremalignant and malignant conditions of the uterine cervix. It is not adiagnostic procedure and should not be used as the sole mean s of detectingcervical cancer. Both false-positive and false-negative reports do occur. .This liquid based ThinPrep(R) pap test w as screened with theuse of an image guided system. See Note . (Normal) DIAGNOSIS: SPRCS (Normal) Comments: NEGATIVE FOR INTRAEPITHELIAL LESION AND MALIGNANCY.Satisfactory for evaluation. Endocervical and/or squamous metaplasticcells (endocervical component) are present.V73.81 ; Special screening examination , human papillomavirus [HPV]Mike Morgan Customer Sales Distributor (ASCP) 00-Vgz-477587:39 NuSwab Vaginitis Plus Comments: PATIENT NOT FASTINGPERFORMED BY: [address] [id number] Information: [id number] (STD W/O Herpes) (09588) Chlamydia trachomatis, JACKSON Negative (Normal) Neisseria gonorrhoeae, JACKSON Negative (Normal) Trich vag by JACKSON Negative (Normal) Trina glabrata, JACKSON Negative (Normal) Comments: This test was developed and its performance characteristics determinedby [facility]. It has not been cleared or approved by the Food and DrugAdministration. The FDA has determined that such clearance orapproval is not necessary. Trina albicans, JACKSON Negative (Normal) Megasphaera 1 Low - 0 {Score} (Normal) Comments: Calculate total score by adding the 3 individual bacterial vaginosis(BV) marker scores together. Total score is interpreted as follows: .Total score 0-1: Indicates the absence of BV.Total score 2: Indeterminate for BV. Additional clinical data should be evaluated to establish a diagnosis.Total score 3-6: Indicates th e presence of BV. .This test was developed and its performance characteristics determinedby [employer]. It has not been cleared or appro rosenda by the Food and DrugAdministration. The FDA has determined that such clearance orapproval is not necessary. BVAB 2 Low - 0 {Score} (Normal) Atopobium vaginae Low - 0 {Score} (Normal) 26-Fix-527546:24 VILLA CULTURE-OTHER (93898) Comments: PATIENT NOT FASTINGPERFORMED BY: [facility] [facility] [id number] Information: SRC:THRT [id number] Result 1 RRF (Normal) Comments: Routine respiratory jim Upper Respiratory Culture Final report (Normal) [id number]:16 Rapid Strep Test, Office (30575) Rapid Strep Test, Office Negative (Normal) 67-Vvw-233859:08 VILLA CULTURE-OTHER (96198) Comments: PATIENT NOT FASTINGPERFORMED BY: [facility] [facility] [id number] Information: SRC: THROAT Result 1 BETAGC (Normal) Comments: Beta hemolytic Streptococcus, group CModerate growthPenicillin and ampicillin are drugs of choice for treatment ofbeta- hemolytic streptococcal infections. Susceptibility testing ofpenicillins and other beta-lactam agents approved by the FDA fortreatment of beta-hemolytic streptococcal infections need not beperformed routinely because nonsusceptible isolates are extremelyrare in any beta-hemolytic stre ptococcus and have not been reportedfor Streptococcus pyogenes (group A). (CLSI 2011) Upper Respiratory Culture Final report (Normal) 57-Yun-030889:53 Rapid Strep Test, Office (24890) Rapid Strep Test, Office Negative (Normal) 46-Oro-040870:22 VILLA CULTURE-OTHER (53200) Comments: PATIENT NOT FASTINGPERFORMED BY: [facility] [facility] [id number] Result 1 RRF (Normal) Comments: Routine respiratory jim Upper Respiratory Culture Final report (Normal) 19-Zoy-272082:02 VILLA CULTURE-OTHER (34661) Comments: PATIENT NOT FASTINGPERFORMED BY: [facility] [facility] [id number] Information: SRC:LAMONT [id number] Result 1 RRF (Normal) Comments: Routine respiratory jim Upper Respiratory Culture Final report (Normal) 74-Mbz-765327:16 Rapid Strep Test, Office (57210) Rapid Strep Test, Office Negative (Normal) 44-Fmk-837231:51 SACRUM-COCCYX,MIN 2 VIEWS Radiology Report See Note (Normal) Comments: PROCEDURE: X-RAY - SACRUM/COCCYX REASON FOR EXAM: Female, 19 years old. Low back and tailbone pain postfall. History of tailbone fracture last year. TECHNIQUE: Three views of the sacrum and cocc yx were obtained. COMPARISON: None. FINDINGS:Normal bilateral sacral ala. Normal bilateral sacroiliac joints. Normal sacral vertebrae with osseous fusion. Normal sacrococcygealjunction with a mag l angulation. Normal coccygeal segments. Normal visualized soft tissue structures. IMPRESSION:Normal plain film x-rays of the sacrum and coccyx. Dictated on 11/20/10 1305 by Cindy Coppola MD cribed on 11/21/10 1002 by ITS IMPORTSign by Bib Coppola MD on 11/21/10 1003 Sign by: Bib Coppola MD 58-Dvn-915617:59 ABDOMEN/PELVIS WITH CONTRAST Radiology Report See Note (Normal) Comments: PROCEDURE: CT ABDOMEN AND PELVIS WITH CONTRAST REASON FOR EXAM: Female, 19 years old. Right lower quadrant pain. TECHNIQUE: Transaxial images were obtained from the dome of thediaphrag mto the symp hysis pubis with oral contrast. 100 ml of Isovue 300 contrastwas administered. Multiplanar coronal and sagittal images werereformatted. COMPARISON: None. FINDINGS:The visualized lung bases are unrem arkable. Normal enhanced liver. Normal gallbladder and extrahepatic biliarysystem.Normal enhanced spleen. Normal pancreas. Normal bilateral adrenal glands. Normal size of the right kidney. There is n o right renal mass. Thereareno right renal calculi. There is no right hydronephrosis. Normalvisualized right ureter. Normal size of the left kidney. There is no left renal mass. There arenoleft earline al calculi. There is no left hydronephrosis. Normal visualizedleft ureter. Food filled stomach. Normal small intestine. Normal colon. At leastpartof a normal air filled appendix is identified. Thi s is best visualizedonthe sagittal images 57 through 61. There is no demonstrated peritoneal fluid. Normal abdominal aorta. Normal inferior vena cava. Normalretroperitoneum. Normal urinary bladder. T here is a 4-cm, smooth rounded low density massin the cul-de-sac posterior to the uterus. The right ovary appears toborder the mass anteriorly on the right side. The left ovary is notclearly identifie d. There is no pelvic fluid. Normal abdominal wall. Normal osseous structures. IMPRESSION:1. A normal appendix is identified.2. 4-cm smooth round low density mass/cyst in the cul-de-sac probably ofo varian origin.3. No ascites.4. No additional abdominal or pelvic abnormalities. Dictated on 11/17/101705 by Ericka DAWKINS,TheresaTranscribed on 11/17/101809 by ITS IMPORTSign by Ericka DAWKINS,Felipa on 11/17/101810 Sign by: Ericka DAWKINS,Felipa 36-Umd-735832:25 CBC with manual diff (21576) Comments: PATIENT NOT FASTINGPERFORMED BY: [facility] VinelandVcccwq3804 [facility] [id number] Immature Grans (Abs) 0.0 {x10E3/uL} (Normal) Range: 0.0-0.1 Immature Granulocytes 0 % (Normal) Range: 0-2 Comments: Please note reference interval change Baso (Absolute) 0.1 {x10E3/uL} (Normal) Range: 0.0-0.2 Eos (Absolute) 0.2 {x10E3/uL} (Normal) Range: 0.0-0.4 Monocytes(Absolute) 0.5 {x10E3/uL} (Normal) Range: 0.1-1.0 Lymphs (Absolute) 2.9 {x10E3/uL} (Normal) Range: 0.7-4.5 Neutrophils (Absolute) 3.8 {x10E3/uL} (Normal) Range: 1.8-7.8 Basos 1 % (Normal) Range: 0-3 Eos 3 % (Normal) Range: 0-7 Monocytes 7 % (Normal) Range: 4-13 Lymphs 38 % (Normal) Range: 14-46 Neutrophils 51 % (Normal) Range: 40-74 Platelets 254 {x10E3/uL} (Normal) Range: 140-415 RDW 12.5 % (Normal) Range: 11.7-15.0 MCHC 32.0 g/dL (Normal) Range: 32.0-36.0 MCH 27.4 pg (Normal) Range: 27.0-34.0 MCV 86 fL (Normal) Range: 80-98 Hematocrit 42.8 % (Normal) Range: 34.0-44.0 Hemoglobin 13.7 g/dL (Normal) Range: 11.5-15.0 RBC 5.00 {x10E6/uL} (Normal) Range: 3.80-5.10 WBC 7.5 {x10E3/uL} (Normal) Range: 4.0-10.5 06-Amk-585086:03 Urinalysis, Office (87705) UA - BILIRUBIN Negative (Normal) UA - BLOOD Negative (Normal) UA - GLUCOSE Negative (Normal) UA - KETONES Negative mg/dL (Normal) UA - LEUKOCYTE ESTERASE Negative (Normal) UA - NITRITE Negative (Normal) UA - PH 7.5 (Normal) UA - PROTEIN Negative mg/dL (Normal) UA - SPECIFIC GRAVITY 1.020 (Normal) URINE UROBILINGN WILIAN TIMED Normal mg/dL (Normal) 63-Agb-15321:15 Pap IG, Ct-Ng, Comments: Source.............Cervical;EndocervicalNo. of containers..01 CYTYC Thin Prep VialPERFORMED BY: WB [facility] Qhxbiagfpn630 [facility] [id number] BY: =G [facility] HPV-hr 0 [facility] [id number] Information: [id number] Gonococcus, Nuc. Acid Amp Negative (Normal) Chlamydia, Nuc. Acid Amp Negative (Normal) HPV, high-risk Negative (Normal) Comments: This high-risk HPV test detects thirteen high-risk types(16/18/31/33/35/39/45/51/52/56/58/59/68) without differentiation. . Note: PAPSMR (Normal) Comments: The Pap smear is a screening test designed to aid in the detection ofpremalignant and malignant conditions of the uterine cervix. It is not adiagnostic procedure and should not be used as the sole mean s of detectingcervical cancer. Both false-positive and false-negative reports do occur. .This liquid based ThinPrep(R) pap test w as screened with theuse of an image guided system. See Note . (Normal) DIAGNOSIS: SPRCS (Normal) Comments: NEGATIVE FOR INTRAEPITHELIAL LESION AND MALIGNANCY.Satisfactory for evaluation. No endocervical component is identified.V72.31 ; Routine gynecological examinationMiriam Johnson Customer Sales Distributor 88-Onx-50619:23 Vaginitis/Vaginosis, DNA Probe Comments: PERFORMED BY: [facility] Vflsrt7720 [facility] [id number] Information: SRC:VA Gardnerella vaginalis Negative (Normal) Trichomonas vaginalis Negative (Normal) Trina species Negative (Normal) Plan of Care Name Dates Details Instructions BMI 34.0-34.9,adult : Follow up if no improvement or if symptoms worsen Indication: BMI 34.0-34.9,adult Light smoker : Eprescribed prescriptions (G8553) Indication: Light smoker BMI 27.0-27.9,adult : Follow up if no improvement or if symptoms worsen Indication: BMI 27.0-27.9,adult Vertigo : *Vertigo Education Indication: Vertigo Urinary frequency : Eprescribed prescriptions (G8553) Indication: Urinary frequency Sore throat : Follow up if no improvement or if symptoms worsen Indication: Sore throat Wheezing : *Antibiotic Usage Education - Female Indication: Wheezing Cough : Eprescribed prescriptions (G8553) Indication: Cough PHARYNGITIS, ACUTE (462.) : *Antibiotic Usage Education - Female Indication: PHARYNGITIS, ACUTE (462.) PHARYNGITIS, ACUTE (462.) : Eprescribed prescriptions (G8553) Indication: PHARYNGITIS, ACUTE (462.) Diarrhea : *Abd Pain Red Flags Indication: Diarrhea Diarrhea : Diarrhea instructions Indication: Diarrhea Unspecified asthma with (acute) exacerbation : Follow up if no improvement or if symptoms worsen Indication: Unspecified asthma with (acute) exacerbation Neck pain : Follow up if no improvement or if symptoms worsen Indication: Neck pain Cough : Follow up in [address] [facility] Indication: Cough Well female exam with routine gynecological exam : Follow up if no improvement or if symptoms worsen Indication: Well female exam with routine gynecological exam Screening for HPV (human papillomavirus) : Safe sex Indication: Screening for HPV (human papillomavirus) Screening for HPV (human papillomavirus) : Self breast exam Indication: Screening for HPV (human papillomavirus) Screening for HPV (human papillomavirus) : *Well Female Maintenance ([facility]) Indication: Screening for HPV (human papillomavirus) Screening for HPV (human papillomavirus) : Pap/Pelvic/Bimanual/Rectal/Breast Exam was done. Indication: Screening for HPV (human papillomavirus) PHARYNGITIS, ACUTE (462.) : Sore throat: diagnosis and treatment Indication: PHARYNGITIS, ACUTE (462.) PHARYNGITIS, ACUTE (462.) : Sore throat: diagnosis and treatment Indication: PHARYNGITIS, ACUTE (462.) Sinusitis, acute : Sinusitis *: sinus infection Indication: Sinusitis, acute RHINITIS, ALLERGIC, DUE TO POLLEN : Follow up as needed Indication: RHINITIS, ALLERGIC, DUE TO POLLEN PHARYNGITIS, ACUTE (462.) : Sore throat: diagnosis and treatment Indication: PHARYNGITIS, ACUTE (462.) Constipation : Follow up in 1 week Indication: Constipation Encounter for control pills maintenance : * Control Pill Warning Signs Indication: Encounter for control pills maintenance Well female exam with routine gynecological exam : SAFE SEX Indication: Well female exam with routine gynecological exam Well female exam with routine gynecological exam : HPV Vaccine Information 2005 Indication: Well female exam with routine gynecological exam Well female exam with routine gynecological exam : SELF BREAST EXAM Indication: Well female exam with routine gynecological exam Well female exam with routine gynecological exam : *Well Female Maintenance ([facility]) Indication: Well female exam with routine gynecological exam Well female exam with routine gynecological exam : Pap/Pelvic/Bimanual/Rectal/Breast Exam was done. Indication: Well female exam with routine gynecological exam Planned Observations Urine Test, Office (47508)Indication: Urinary frequency On: 49-Kpw-645618:46 Request Metabolic Panel, Comprehensive (66332)Indication: Low back pain On: 1-Cpc-794969:59 Request TSH (THYROID STIMULATING HORMONE) (25089)Indication: Soft tissue swelling of back On: 0-Ucv-951929:58 Request OVA & PARASITE DIR SMEAR (81254)Indication: Diarrhea On: :26 Request OCCULT BLOOD FECES SCREEN (21792)Indication: Diarrhea On: :26 Request LEUKOCYTE COUNT, FECAL (99424)Indication: Diarrhea On: :26 Request C-DIFFICILE, STOOL (89119)Indication: Diarrhea On: :25 Request VILLA CULTURE-STOOL (31387)Indication: Diarrhea On: 5-Cip-948674:25 Request thin prep (68516) (std testing)Indication: Well female exam with routine gynecological exam On: 41-Tkl-772927:23 Request Rapid Strep Test, Office (74331)Indication: PHARYNGITIS, ACUTE (462.) On: 47-Una-887997:16 Request INFCT ANTGN TRICH VAGIN DIRECT PRB (08648)Indication: Well female exam with routine gynecological exam On: 26-Wic-424825:39 Request GARDNERELLA VAG, NUCLEIC ACID DIR PROBE (78146)Indication: Well female exam with routine gynecological exam On: 46-Cyg-865245:39 Request TRINA, NUCLEIC ACID DIRECT PROBE (88428)Indication: Well female exam with routine gynecological exam On: 28-Jlu-454992:39 Request thin prep (67647) (std testing)Indication: Well female exam with routine gynecological exam On: 62-Ona-017281:24 Request HUMAN PAPILVS, NUCLEIC ACID AMPL PROBE (06331)Indication: Well female exam with routine gynecological exam On: 64-Zfn-562205:24 Request NEISSERIA (68168) (THIN PREP OBTAINED)Indication: Well female exam with routine gynecological exam On: 81-Vzc-708997:24 Request CHLAMYDIA (82055) (thin prep obtained)Indication: Well female exam with routine gynecological exam On: 64-Own-831258:24 Request Planned Procedures Radiology - Lumbar SpineBy: Yulissa On: 08-Feb-2014 Intent Sherrie SANDERS CNP, Mary E Eprescribed prescriptions On: 02-Jun-2013 Intent (G8553)By: Sherrie Duenas CNP, CNP, Mary E Eprescribed prescriptions On: 13-Apr-2013 Intent (G8553)By: Sherrie Duenas CNP, CNP, Mary E Solu -Medrol Injection, 125 mg On: 13-Apr-2013 Intent (J2930)By: Sherrie Duenas CNP Comments: lot: [id number]: 16site/route: LGM/IMamt: 2mLVIS signed when applicableChelsDUDLEY grissom CNP, Mary E Aerosol Treatment (61105)By: Yulissa On: 06-Apr-2013 Intent Sherrie SANDERS CNP, Mary E Solu- Medrol Injection, 125mg On: 06-Apr-2013 Intent (J2930)By: Sherrie Duenas CNP, CNP, Mary E Eprescribed prescriptions On: 21-Jan-2013 Intent (G8553)By: Jaqueline Prieto LPN SPECIMEN HNDLNG/TRNSPRT, OFFC > LAB On: 25-Jul-2012 Intent (23753)By: Farnaz Falcon MD SPECIMEN HNDLNG/TRNSPRT, OFFC > LAB On: 24-Apr-2012 Intent (70838)By: DENISHA Martinez SPECIMEN HNDLNG/TRNSPRT, OFFC > LAB On: 20-Jun-2011 Intent (84674)By: Swapna Ambriz LPN SPECIMEN HNDLNG/TRNSPRT, OFFC > LAB On: 01-May-2011 Intent (67140)By: Farnaz Falcon MD Toradol Injection, 30 mg On: 20-Nov-2010 Intent (J1885)By: Sherrie Duenas CNP Comments: Lot #[id number]-left hipDose- 30mlgiven by: Yvan Connor LPN CNP, Mary E Radiology - Lumbar SpineBy: Yulissa On: 20-Nov-2010 Intent Sherrie SANDERS CNP, Mary E Comments: Need xray of sacral spine CT - Abdomen & Pelvis (IV Contrast On: 17-Nov-2010 Intent Needed)By: Sherrie Duenas CNP Comments: rule out appendicitis vs ovarian cysttoday call wet read to Sherrie CARTER CNP Planned Medications INJECTION, KETOROLAC TROMETHAMINE, PER 15 MG Ordered: 20-Nov-2010 Pending Sherrie Duenas CNP, CNP, Sherrie Freed INJECTION, METHYLPREDNISOLONE SODIUM SUCCINATE, UP TO 125 MG Ordered: 06-Apr-2013 Pending Sherrie Duenas CNP, CNP, Sherrie Freed INJECTION, METHYLPREDNISOLONE SODIUM SUCCINATE, UP TO 125 MG Ordered: 13-Apr-2013 Pending Sherrie Duenas CNP, CNP, Mary E Instructions Name Dates Details Light smoker : How to access health information online Indication: Light smoker Light smoker : How to access health information online - Detail Indication: Light smoker Light smoker : Patient Instructions Indication: Light smoker Urinary frequency : How to access health information online Indication: Urinary frequency Urinary frequency : How to access health information online - Detail Indication: Urinary frequency Urinary frequency : Patient Instructions Indication: Urinary frequency Cough : How to access health information online Indication: Cough Cough : How to access health information online - Detail Indication: Cough Cough : Patient Instructions Indication: Cough PHARYNGITIS, ACUTE (462.) : Patient Instructions Indication: PHARYNGITIS, ACUTE (462.) Diarrhea : Patient Instructions Indication: Diarrhea Neck pain : Patient Instructions Indication: Neck pain Sinusitis, acute : Patient Instructions Indication: Sinusitis, acute Encounters Office Visit On: 28-Jan-2018 15:09 Encounter Reason: ingrown toenail - right big toeEncounter Diagnosis: Light smoker, BMI 34.0-34.9,adult, Ingrown toenail of right foot End: 28-Jan-2018 15:33 [facility] Annotation/Addendum On: 26-Sep-2016 13:57 Encounter Diagnosis: Unspecified Diagnosis End: 26-Sep-2016 16:00 [facility] Office Visit On: 26-Sep-2016 13:20 Encounter Reason: Dizziness - Symptoms include dizziness and difficulty ambulating (upon onset). The dizziness is described as a spinning sensation and a sensation of movement. Onset was 7 hour(s) ago. The symptoms occur End: 26-Sep-2016 13:52 intermittently. The patient describes this as improving. Associated symptoms include nausea and headache (off and on temporal). Previous presentation included dizziness, lightheadedness, difficulty amb ulating, nausea and headache. Note for Dizziness: Dizziness with awakeningEncounter Diagnosis: BMI 27.0-27.9,adult, Light smoker, Urinary frequency, Vertigo [facility] Phone Encounter On: 10-Jul-2016 9:28 Encounter Diagnosis: Unspecified Diagnosis End: 10-Jul-2016 9:30 [facility] Annotation/Addendum On: 29-Nov-2015 12:29 Encounter Diagnosis: Unspecified Diagnosis End: 29-Nov-2015 12:30 [facility] Office Visit On: 29-Nov-2015 11:40 Encounter Reason: Sore Throat - Symptoms include sore throat. The symptoms are symmetrical. The pain radiates to the left ear. The symptoms occur constantly (worse with swallowing). Symptoms are exacerbated by swallowing End: 29-Nov-2015 12:28 liquids and swallowing solids. By report there is good compliance with treatment. Presenting symptoms included sore throat.Encounter Diagnosis: Sore throat [facility] Historical Summary On: 26-Oct-2014 8:48 [facility] End: 26-Oct-2014 8:49 Office Visit On: 20-Oct-2014 16:09 Encounter Reason: Cough - The onset of the cough has been sudden (yesterday and woke up this am at 4 with a bad croupy cough). The cough is characterized as dry. The amount of sputum produced is scanty. The cough occurs End: 21-Oct-2014 22:32 all the time. The symptoms have been associated with headache, hoarseness and wheezing, while the symptoms have not been associated with dyspnea, fever, runny nose or sore throat. the color of the sput um is yellowish. Note for Cough : hx of exercised induced asthma but got worse with weight gain - no fever- no preg concerns Encounter Diagnosis: Cough, Wheezing, Bronchitis,Acute (466.0) [facility] Office Visit On: 11-May-2014 12:00 Encounter Reason: Cold Symptoms - Symptoms include runny nose, postnasal drainage, sore throat, hoarseness, productive cough (yellow) and headache, while symptoms do not include nasal congestion, facial pressure or facia End: 11-May-2014 21:56 l pain. Onset was sudden 3 day(s) ago. The symptoms occur constantly. The patient describes this as worsening. Associated symptoms include ear pain and diarrhea (thinks from a diet shake she is doing), while associated symptoms do not include wheezing, shortness of breath, nausea, vomiting, fever or chills. Note for Cold symptoms: yesterday coughing alot- today woke up with draiange- no preg concern s on control- had white exudate on tonsils this am- no feel tired like monoEncounter Diagnosis: PHARYNGITIS, ACUTE (462.) [facility] Office Visit On: 08-Feb-2014 15:43 Encounter Reason: spot on backEncounter Diagnosis: Low back pain (724.2), Soft tissue swelling of back End: 08-Feb-2014 16:59 [facility] Office Visit On: 02-Jun-2013 13:13 Encounter Reason: Diarrhea - The diarrhea has been occurring for 1 day.Encounter Diagnosis: Diarrhea End: 02-Jun-2013 16:27 [facility] Office Visit On: 13-Apr-2013 13:58 Encounter Reason: Follow up acute care visit - The patient feels the same and has decreased energy level. Patient has been compliant with instructions. Current medication use: no side effects, compliant with dosing regim End: 13-Apr-2013 15:24 en and not considered effective by patient. Patient sleeps 9 hours per night. The medical issues the patient is following up for include All identified problems below and asthma.Encounter Diagnosis: Wheeze, Cough, ASTHMA, UNSPECIFIED, WITH ACUTE EXACERBATION (493.92), Neck pain [facility] Office Visit On: 06-Apr-2013 15:07 Encounter Reason: Cough - The onset of the cough has been sudden. The cough is characterized as productive of mucoid sputum. The amount of sputum produced is scanty. The cough occurs all the time. The symptoms are aggra End: 06-Apr-2013 15:54 vated by supine posture. The symptoms have been associated with wheezing, while the symptoms have not been associated with fever or hoarseness. the color of the sputum is yellowish.Encounter Diagnosis: ASTHMA, UNSPECIFIED, WITH ACUTE EXACERBATION (493.92), Cough, Wheeze [facility] Office Visit On: 21-Jan-2013 10:23 Encounter Reason: Well Women Exam - The patient has good energy level and is sleeping well. Pap smear: date of last pap: (08/2010 here but had one in fall 2011 and states her bc is out so she is due). Contraceptive histor End: 21-Jan-2013 11:37 y: The current method of contraception is none (took last pill on 08/12/10). Patient exercises a weekly. The patient reports that she performs monthly self breast exam. The patient has been using oral co ntraceptives. Menstruation: Last menstrual period date: (08/12/10 finished ).Encounter Diagnosis: Well Female (Younger Female) (V72.31), SCREENING FOR HUMAN PAPILLOMAVIRUS (HPV) (V73.81) [facility] Office Visit On: 09-Oct-2012 15:03 Encounter Reason: Eye Pain - The eye pain has been occurring for days. The course has been increasing. The eye pain is described as moderate. The pain is located in the right eye. Symptoms are relieved by eye drops (otc allergy drops). End: 09-Oct-2012 15:21 Encounter Diagnosis: Acute conjunctivitis (372.00) [facility] Phone Encounter On: 29-Sep-2012 11:40 Encounter Diagnosis: Motion sickness (994.6) End: 29-Sep-2012 11:44 [facility] Office Visit On: 25-Jul-2012 12:54 Encounter Reason: Sinusitis/ - The duration of the symptoms are 2 days The course has been recurrent. The sinusitis/ has no relieving factors. Associated features include The symptoms have been associated with cough, ear End: 25-Jul-2012 13:17 pain, nasal discharge/stuffy nose and sinus pain. allergies.Encounter Diagnosis: Asthma (493.90), PHARYNGITIS, ACUTE (462.) [facility] Phone Encounter On: 29-Apr-2012 16:34 Encounter Diagnosis: Unspecified Diagnosis End: 29-Apr-2012 16:40 [facility] Prescription Refill On: 28-Apr-2012 13:34 [facility] End: 28-Apr-2012 13:35 Office Visit On: 24-Apr-2012 14:45 Encounter Reason: Sinusitis/ - The duration of the symptoms are 2 days The course has been recurrent. The sinusitis/ has no relieving factors. Associated features include The symptoms have been associated with cough, ear End: 24-Apr-2012 15:02 pain, nasal discharge/stuffy nose, sinus pain and sore throat.Encounter Diagnosis: PHARYNGITIS, ACUTE (462.) [facility] Office Visit On: 28-Feb-2012 13:20 Encounter Reason: Sinusitis/ - The duration of the symptoms are 3 days The course has been gradually worsening. The sinusitis/ has no relieving factors. Associated features include The symptoms have been associated with End: 28-Feb-2012 13:50 cough, nasal discharge/stuffy nose and sinus pain. allergies and tobacco abuse. Note for Sinusitis/: prod cough- yellow and nasal drainage yellow - admits to fascial painm and teeth pain Encounter Diagnosis: Sinusitis acute (461.9), Bronchitis (490) [facility] Office Visit On: 20-Jun-2011 11:11 Encounter Reason: Sore Throat - The symptoms are symmetrical. There is no radiation. The patient describes the pain as sharp. Onset was sudden 1 week(s) ago. The symptoms occur constantly. The patient describes this as s End: 20-Jun-2011 11:35 evere and worsening. Associated symptoms include hoarseness and cough.Encounter Diagnosis: PHARYNGITIS, ACUTE (462.), RHINITIS, ALLERGIC, DUE TO POLLEN (477.0) [facility] Annotation/Addendum On: 01-May-2011 11:36 Encounter Diagnosis: Unspecified Diagnosis End: 03-May-2011 6:48 [facility] Office Visit On: 01-May-2011 11:14 Encounter Diagnosis: PHARYNGITIS, ACUTE (462.) End: 01-May-2011 11:36 [facility] Office Visit On: 20-Nov-2010 11:46 Encounter Reason: Follow up tests - Diagnostic tests include CT scan. Date: (11/17/10). There is no family history of breast cancer, cardiovascular disease, cystic fibrosis, Down's syndrome, mental retardation or myocardial infarction before age 55. End: 20-Nov-2010 12:58 Encounter Diagnosis: CYST, FOLLICULAR, OVARY (620.0), Low back pain (724.2), CONSTIPATION NOS (564.00) [facility] Office Visit On: 17-Nov-2010 13:48 Encounter Reason: Abdominal Pain, Female - Symptoms include abdominal pain. The pain is located in the left lower quadrant. Onset was 4 day(s) ago. The symptoms occur constantly. Associated symptoms include bloody stool. End: 17-Nov-2010 14:22 She is sexually active (with pain past 2 X ). Previous presentation included abdominal pain.Encounter Diagnosis: Abdominal Pain,General (789.07), CONSTIPATION NOS (564.00) [facility] Office Visit On: 14-Aug-2010 10:59 Encounter Reason: Well Women Exam - The patient has good energy level and is sleeping well. Pap smear: date of last pap: (2009). Contraceptive history: The current method of contraception is none (took last pill on End: 14-Aug-2010 11:45 11). Patient exercises a weekly. The patient reports that she performs monthly self breast exam. The patient has been using oral contraceptives. Menstruation: Last menstrual period date: (08/12/10 finished ).Encounter Diagnosis: Well Female (Younger Female) (V72.31), Surveillance of contraceptive pill (V25.41), Counseling on other sexually transmitted diseases (V65.45), CANDIDIASIS, UROGENITAL SITES NEC (112.2) [facility] Payers [employer] ADDISON/Gilberto Mcgovern; a guarantor
== END ==
PROVIDERS: Family Provider Nurse Practitioner; PCP Nurse Practitioner; Referring Provider Obstetrics & Gynecology; Visit Provider Obstetrics & Gynecology
DX: Z12.4 Encounter for screening for malignant neoplasm of cervix (principal)
CPT/HCPCS: 88175; G0145

== ENCOUNTER 2018-05-06 17:00 | Outpatient (RCR) | payer BC, SELFPAY ==
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
--- NOTE | 2018-05-06 17:33 | HP.PTDCSUM ---
HP - PT D/C Summary It has been my pleasure to treat TIO JORGENSEN under orders from Daniel Marcelino MD, for the diagnosis of back and pelvic pain for a total of 13 visit(s). Discharge Date: 05/06/18 Please see the following information for a summary of their discharge status. - Subjective Subjective: Pt reports that she has no back pain. SHe says that when she lays flat she sometimes has some back discomfort. - Pain back pain Pain Intensity (Out of 10): 0 hip pain Pain Intensity (Out of 10): 0 - Overall Improvement % Improvement: 95 - Objective Objective/Function: LE MMT: Hip abd 4+/5 B. hip ext 4/5 B. Met all goals - Goals Goal 1:: I HEP Goal Progress: Goal Met Goal 2:: LB and hip pain 1/10 with ADL's and sitting at work. Goal Progress: Goal Met Goal 3:: Increase B hip strength by 1/2 muscle grade and increase core strength to decrease pain and increase stability. Goal Progress: Goal Met - Plan Plan: DC PT to HEP - D/C Information Discharge Comments: DC PT to HEP If there are questions or concerns regarding this patient's physical therapy, please feel free to call me at [phone]. Thank you for the referral of this patient. Sincerely, MADELINE Ivory
== END 2018-05-06 19:00 | disposition home or self-care (01) ==
LOC: PT 17:00
PROVIDERS: Family Provider Nurse Practitioner; PCP Nurse Practitioner; Referring Provider Obstetrics & Gynecology; Visit Provider Obstetrics & Gynecology
DX: M54.6 Pain in thoracic spine (principal); R10.2 Pelvic and perineal pain
CPT/HCPCS: 97110; 97161

== ENCOUNTER → 2019-03-24 14:40 | Outpatient (CLI) | payer BC, SELFPAY ==
--- NOTE | 2019-03-24 14:49 | RAD_ITS ---
STUDY: X-RAY - LUMBAR SPINE REASON FOR EXAM: Female, 28 years old. chronic low back pain TECHNIQUE: 2 view(s) of the lumbar spine were obtained. COMPARISON: 02/08/2014 FINDINGS: Normal lumbar lordosis. There is no substantial scoliosis. There is a normal alignment of the vertebrae. Normal vertebral bodies and endplates. Normal disc space heights. The soft tissue structures are unremarkable. RAD/Lumbar Spine 2 or 3 Views IMPRESSION: Normal x-ray examination of the lumbar spine. Electronically Signed: Tyrone Kohler DO at 13:06 EST Tel , Service support ,
== END ==
LOC: HPRAD 14:44
PROVIDERS: PCP Nurse Practitioner; Referring Provider Nurse Practitioner; Visit Provider Nurse Practitioner
DX: M54.9 Dorsalgia, unspecified (principal)
CPT/HCPCS: 72100

== ENCOUNTER → 2019-09-09 16:11 | Outpatient (CLI) | payer BC, SELFPAY ==
[2019-09-09 15:13] VITALS: BMI 38.3
[2019-09-09 16:46] LABS: Absolute Lymphocyte Count 2.33 X10^3/uL (0.83-4.51); Absolute Neutrophil Count 8.1 X10^3/uL (2.0-7.7); Basophil# 0.01 X10^3/uL; Basophil% 0.1 % (0-1); Eosinophil# 0.09 X10^3/uL; Eosinophils% 0.8 % (0-5); Hematocrit 39.4 % (37-47); Lymphocyte # 2.33 X10^3/ul (4.0); Lymphocyte % 20.8 % (19-41); Mean Corpuscular Hgb 28.2 pg (27.0-32.0); Mean Corpuscular Volume 85.5 fL (81-99); Mean Platelet Vol. 10.9 fl (6.2-12.0); Monocyte# 0.68 X10^3/uL; Monocyte% 6.1 % (0-10); NRBC Flagged by Analyzer 0 % (0-5); Neutrophil # 8.05 X10^3/uL (2.7-7.7); Neutrophil % 71.8 % (47-70); Platelet Count 232 K/mm3 (150-450); RBC Distribution Width CV 13.1 % (11.6-14.6); RBC Distribution Width SD 40.2 fl (35.1-43.9); Red Blood Count 4.61 M/mm3 (4.2-5.4); White Blood Count 11.2 K/mm3 (4.4-11.0)
[2019-09-09 17:07] LABS: ALB/GLOB Ratio 1.1 RATIO (0.9-2.4); AST(SGOT) 15 U/L (15-37); Alanine Aminotransfer ALT/SGPT 20 U/L (13-56); Albumin, Serum 3.8 g/dL (3.2-5.0); Alkaline Phosphatase 44 U/L (45-117); Anion Gap 6 (5-15); BUN 8 mg/dL (7-18); BUN/Creat Ratio 12.6 RATIO (10-20); Calcium,Total 9.1 mg/dL (8.5-10.1); Chloride 106 mmol/L (98-107); Creatinine, Serum 0.63 mg/dL (0.55-1.02); EST Glomerular Filtration Rate 119 mL/min (>60); Est Glom Filt Rate - Afr Amer 144 mL/min (>60); Globulin 3.6 g/dL (2.2-4.2); Glucose 81 mg/dL (74-106); Potassium 3.8 mmol/L (3.5-5.1); Protein, Total 7.4 g/dL (6.4-8.2); Sodium Level 137 mmol/L (136-145)
[2019-09-09 17:51] LABS: Amphetamine Urine VISTA NEGATIVE (<1000 ng/mL); Barbiturate Urine VISTA NEGATIVE (< 200 ng/mL); Benzodiazepine Urine VISTA NEGATIVE (< 200 ng/mL); Cocaine Urine VISTA NEGATIVE (< 300 ng/mL); Ecstacy Urine VISTA NEGATIVE (< 500 ng/mL); Methadone Urine VISTA NEGATIVE (< 300 ng/mL); PCP Urine VISTA NEGATIVE (< 25 ng/mL); THC Urine VISTA NEGATIVE (< 50 ng/mL); Vista UDS pH Range 6
[2019-09-09 19:44] LABS: Chlamydia Trachomatis by PCR Negative (Negative); Neisserai gonorrhoeae by PCR Negative (Negative); Probe Check PASS; Sample Adequacy Control PASS; Specimen Processing Control PASS
[2019-09-10 01:39] LABS: Rapid Plasmin Reagin (RPR) NONREACTIVE (NONREACTIVE)
[2019-09-10 09:52] LABS: HIV - WCH Non-Reactive (Nonreactive); Hepatitis B Surface Antigen Non-Reactive (Nonreactive); Hepatitis C Antibody Non-Reactive (Nonreactive); Rubella IgG 34.1 IU/mL
== END ==
PROVIDERS: PCP Nurse Practitioner; Visit Provider Obstetrics & Gynecology
DX: O09.299 Supervision of pregnancy with other poor reproductive or obstetric history, unspecified trimester (principal); Z3A.00 Weeks of gestation of pregnancy not specified
CPT/HCPCS: 36415; 80053; 80307; 85025; 86592; 86703; 86762; 86803; 86850; 86900; 86901; 87086; 87340; 87491; 87591

== ENCOUNTER → 2020-01-26 15:16 | Outpatient (CLI) | payer BC, SELFPAY ==
[2020-01-01 11:14] VITALS: BMI 32.2
[2020-01-26 16:01] LABS: Absolute Lymphocyte Count 2.41 X10^3/uL (0.83-4.51); Absolute Neutrophil Count 9.1 X10^3/uL (2.0-7.7); Basophil# 0.05 X10^3/uL; Basophil% 0.4 % (0-1); Eosinophil# 0.32 X10^3/uL; Eosinophils% 2.5 % (0-5); Hematocrit 40.4 % (37-47); Hemoglobin 13.5 g/dL (12.0-15.0); Lymphocyte # 2.41 X10^3/ul (4.0); Lymphocyte % 19.2 % (19-41); Mean Corp Hgb Conc 33.4 g/dL (32-36); Mean Corpuscular Hgb 29.4 pg (27.0-32.0); Mean Platelet Vol. 10.8 fl (6.2-12.0); Monocyte# 0.64 X10^3/uL; Monocyte% 5.1 % (0-10); NRBC Flagged by Analyzer 0 % (0-5); Neutrophil # 9.07 X10^3/uL (2.7-7.7); Neutrophil % 72.2 % (47-70); Platelet Count 226 K/mm3 (150-450); RBC Distribution Width CV 13.2 % (11.6-14.6); Red Blood Count 4.59 M/mm3 (4.2-5.4); White Blood Count 12.6 K/mm3 (4.4-11.0)
[2020-01-26 16:09] LABS: Glucose Challenge Gest 1H 50g 134 mg/dL (70-140)
[2020-01-26 16:31] LABS: Protein, Urine (Random) < 6.0 mg/dL (<11.9)
== END ==
PROVIDERS: PCP Nurse Practitioner; Referring Provider Obstetrics & Gynecology; Visit Provider Obstetrics & Gynecology
DX: O09.299 Supervision of pregnancy with other poor reproductive or obstetric history, unspecified trimester (principal); Z3A.00 Weeks of gestation of pregnancy not specified
CPT/HCPCS: 36415; 82570; 82950; 84156; 85025

== ENCOUNTER → 2020-03-21 | Outpatient (CLI) | payer BC, SELFPAY ==
[2020-03-21 15:50] VITALS: BMI 36.1
== END | disposition home or self-care (01) ==
LOC: LABSPEC 16:45
PROVIDERS: PCP Nurse Practitioner; Visit Provider Obstetrics & Gynecology
DX: Z34.90 Encounter for supervision of normal pregnancy, unspecified, unspecified trimester (principal)
CPT/HCPCS: 87077; 87081; 87186

== ENCOUNTER → 2020-04-13 17:00 | Outpatient (CLI) | payer BC, SELFPAY ==
[2020-03-10 13:52] VITALS: BMI 35.0
[2020-04-13 14:51] VITALS: BMI 37.1
== END ==
PROVIDERS: PCP Nurse Practitioner; Visit Provider Nurse Practitioner Women's Health
DX: Z34.80 Encounter for supervision of other normal pregnancy, unspecified trimester (principal)
CPT/HCPCS: 87635; C9803; U0005; U0003

== ENCOUNTER 2020-04-15 18:05 | Outpatient (CLI) | payer BC, SELFPAY ==
[2020-04-13 14:51] VITALS: BMI 37.1
[2020-04-15] VITALS (12 sets, daily range): BP systolic 123–145; BP diastolic 70–88; PULSE 89–107; TEMP 36.9–37.3; O2SAT 97–98; BMI 37.4
[2020-04-15 18:56] LABS: Hematocrit 38.4 % (37-47); Hemoglobin 13.3 g/dL (12.0-15.0); Mean Corp Hgb Conc 34.6 g/dL (32-36); Mean Corpuscular Hgb 29.4 pg (27.0-32.0); Mean Platelet Vol. 11.4 fl (6.2-12.0); Platelet Count 225 K/mm3 (150-450); RBC Distribution Width CV 12.4 % (11.6-14.6); RBC Distribution Width SD 37.6 fl (35.1-43.9); Red Blood Count 4.52 M/mm3 (4.2-5.4); White Blood Count 13.5 K/mm3 (4.4-11.0)
[2020-04-15 19:11] LABS: AST(SGOT) 18 U/L (15-37); Alanine Aminotransfer ALT/SGPT 19 U/L (13-56); Creatinine, Serum 0.79 mg/dL (0.55-1.02); EST Glomerular Filtration Rate 92 mL/min (>60); Est Glom Filt Rate - Afr Amer 112 mL/min (>60); Uric Acid 5.2 mg/dL (2.6-6.0)
[2020-04-15 19:11] LABS: Protein:Creat Ratio 220 mg/g CRE (0-200)
--- NOTE | 2020-04-15 20:19 | OB.TRI.PN ---
Progress Notes Date of Service: 04/15/20 Progress Note: Patient presents for triage evaluation secondary to elevated BPs at home. Isolated mild range BP but otherwise normal. Labs normal aside from slightly elevated P:C. FHT: Moderate variability reactive no decelerations category I tracing [place]: Irregular Contractions Assessment and plan: Reactive NST, reassuring maternal and status patient discharged to home to follow-up for BP check next week. See problem list details for additional plan information. Laboratory Studies: Laboratory Tests 04/15/20 04/15/20 04/15/20 Range/Units 18:45 18:35 18:35 WBC 13.5 H (4.4-11.0) K/mm3 RBC 4.52 (4.2-5.4) M/mm3 Hgb 13.3 (12.0-15.0) g/dL Hct 38.4 (37-47) % MCV 85.0 (81-99) fL MCH 29.4 (27.0-32.0) pg MCHC 34.6 (32-36) g/dL RDW Std Deviation 37.6 (35.1-43.9) fl RDW Coeff of Lise 12.4 (11.6-14.6) % Plt Count 225 (150-450) K/mm3 MPV 11.4 (6.2-12.0) fl Creatinine 0.79 (0.55-1.02) mg/dL Estim Creat Clear Calc 103.10 ml/min Est GFR (MDRD) Af Amer 112 (>60) mL/min Est GFR (MDRD) Non-Af 92 (>60) mL/min Uric Acid 5.2 (2.6-6.0) mg/dL AST 18 (15-37) U/L ALT 19 (13-56) U/L U Random Total Protein 10.0 (<11.9) mg/dL Urine Creatinine 45.50 (NO RANGE EST.) mg/dL Protein/Creatinin Ratio 220 H (0-200) mg/g CRE Multi Select Codes - Urinary/Genital Urinary/Genital CPT Codes: 77886-34 non-stress test Interp
== END 2020-04-15 20:00 | disposition home or self-care (01) ==
LOC: WPOUT 18:13 → WP 18:13
PROVIDERS: PCP Nurse Practitioner; Visit Provider Obstetrics & Gynecology
DX: O26.899 Other specified pregnancy related conditions, unspecified trimester (principal); R03.0 Elevated blood-pressure reading, without diagnosis of hypertension; Z3A.00 Weeks of gestation of pregnancy not specified
CPT/HCPCS: 36415; 59025; 59050; 82565; 82570; 84156; 84450; 84460; 84550; 85027; 99218; G0378

== ENCOUNTER 2020-04-18 12:59 | Inpatient (IN) | payer BC, SELFPAY ==
[2020-04-18] VITALS (51 sets, daily range): BP systolic 109–145; BP diastolic 59–86; PULSE 80–130; TEMP 36.4–37; O2SAT 91–100; BMI 36.9; BMI 37.0
[2020-04-18 11:19] LABS: Protein, Urine (Random) 14.2 mg/dL (<11.9); Protein:Creat Ratio 185 mg/g CRE (0-200)
[2020-04-18 12:07] LABS: Hematocrit 40.3 % (37-47); Hemoglobin 13.6 g/dL (12.0-15.0); Mean Corp Hgb Conc 33.7 g/dL (32-36); Mean Corpuscular Hgb 28.7 pg (27.0-32.0); Mean Platelet Vol. 11.3 fl (6.2-12.0); Platelet Count 243 K/mm3 (150-450); RBC Distribution Width CV 12.4 % (11.6-14.6); RBC Distribution Width SD 38.3 fl (35.1-43.9); Red Blood Count 4.74 M/mm3 (4.2-5.4)
[2020-04-18 12:23] LABS: AST(SGOT) 18 U/L (15-37); Alanine Aminotransfer ALT/SGPT 15 U/L (13-56); Creatinine, Serum 0.71 mg/dL (0.55-1.02); EST Glomerular Filtration Rate 104 mL/min (>60); Est Glom Filt Rate - Afr Amer 126 mL/min (>60); Estimated Creatinine Clearance 114.72 ml/min; Uric Acid 5.5 mg/dL (2.6-6.0)
[2020-04-18] MEDS: Lactated Ringers 1,000 ML 50 ML IV (14:07)
[2020-04-18] MEDS: Vancomycin IV 1,000 MG/200 ML BAG 100 MG IV ×2 (14:07→17:50)
[2020-04-18] MEDS: Oxytocin 30 units/NS 500 ml 30 UNITS/500 ML IV.SOLN IV (15:27)
[2020-04-18] MEDS: Lactated Ringers 500 ML 999 ML IV ×2 (17:13→21:30)
--- NOTE | 2020-04-18 17:17 | HP.PCM_ITS ---
- Problem List (1) Gestational hypertension Status: Acute (2) Active labor at term Status: Acute (3) 35 weeks gestation of Status: Acute Comment: COVID Negative (4) History of pre-eclampsia Status: Acute Comment: baseline labs nl, 81mg asa at 14 weeks (5) History of tetanus, diphtheria, and acellular pertussis booster vaccination (Tdap) Status: Acute Comment: 01/26/20 (6) Influenza vaccination declined Status: Acute Comment: 12/03/2019sc (7) Positive GBS test Status: Acute Comment: ATB in labor (8) Status: Acute Qualifiers: Comment: carrier, genetic, and ntd screening declined. 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 Is patient in pain?: No Allergies Penicillins Allergy (Verified 04/15/20 18:15) Hives Sulfa (Sulfonamide Antibiotics) Allergy (Verified 04/15/20 18:15) Rash sulfur dioxide Allergy (Verified 04/15/20 18:15) Rash Medications vitamin #56-iron 35 mg and 5 mg-folic acid 1 mg-dha capsule 1 cap PO DAILY 10/09/19 [History Confirmed 04/18/20] Last Menstral Period: 07/13/19 Zika: Zika virus screening: Negative : No PFSH PFSH Medical History Endometriosis (Acute) Surgical History History of ovarian cystectomy (Acute) S/P laparoscopy (Resolved) Family History Mother Hypertension Father Hypertension Grandfather Throat cancer Diabetes Social History (Updated 04/18/20 @ 10:56 by Francia Parada ROUGH ROUNDER MACHINE, ROUGH ROUNDER MACHINE-C) Smoking Status: Former smoker alcohol intake: never substance use type: does not use caffeine: Yes what type of physical activity do you participate in: aerobics, weight training frequency: 3-4 times per week seatbelt use: always do you feel safe at home: Yes additional social history: - [place]- RICHARD Burroughs Patient works at [email or web address] Pregancy History 2 Elective abortions Hx Para 1 Spontaneous abortions Hx # Term Pregnancies Ectopic pregnancies Hx # Pregnancies Multiple births # of living children Past Pregnancies Del. Date Name GA/Weeks Outcome Route Bth Weight Infant Gen Labor Lgth Anesthesia Del Locatn Provider FOB 09/26/17 [place] 40 live - full term vacuum 7lbs Female 24 hours epidural [facility] Dr. Patti Houston [place] Delivery Date: 09/26/17 No issues during . Elevated blood pressure during labor, Fever developed during labor Kim Borrego HPI BP check; contractions: Details: TIO BARBOUR is a 29 year old who presents for routine OB visit. OB Visit SHAE Calculator Estimated Delivery Date Method Current WG Current Estimate 04/18/20 LMP (Certain) 40w 0d Expected Delivery Route/Plan Labor Preferences- labor support person: Lamonte pain management options preferred: epidural cut cord/dad catch: yes : yes PP control planned: [] discussed possible routes of delivery and associated risks: discussed possible delivery modalities and possible indications for each including R/B/A of , VAVD, FAVD, and CS. questions answered. special requests: [] Specific Issue/Plans flu vaccine: declined tdap vaccine: given rhogam: na LARC form signed: yes movement and labor precautions reviewed. Problem list reviewed and updated with the most current plan of care details and appropriate orders placed. Relevant counseling for the gestational age provided. Continue routine care and follow up unless otherwise noted in visit notes/problem list details Initial Weight: 186 lb Date EGA Weight BP Urine Prot Glucose FHR FuHt Pres Dilation Effaced St Visit Note 09/09/19 8w 2d 186 lb 2 oz (+2 oz) 122/74 175 CRL 1.7 cm cons with LMP 10/09/19 12w 4d 187 lb (+16 oz) 102/64 Negative Negative 145 SM- no vb cramping 11/05/19 16w 3d 193 lb (+7 lb) 110/56 Negative Negative 145 SM- no vb lof good fm n oregular ctx SM- no vb cramping nausea reduced 12/03/19 20w 3d 199 lb 6 oz (+13 lb 6 oz) 122/72 Negative Negative 140 20 Sm- no vb cramping, reivewed anatomy us 01/01/20 24w 4d 206 lb (+20 lb) 110/62 Negative Negative 140 25 Sm- no vb lof good fm no regular ctx 01/26/20 28w 1d 213 lb (+27 lb) 116/72 Negative Negative 142 28 MH-No VB, LOF. Good FM. 28 wk labs,tdap, larc 01/27/20 28w 2d MH-working due to had tdap yesterday and noting stiffness and discomfort down left arm and up to neck. Arm has good ROM, equal strength in both hands. No visual edema or erythema. Reassured. Alternated hot/cold for comfort. Tylenol. 02/11/20 30w 3d 217 lb (+31 lb) 122/80 140 30 SM- no vb lof good fm nor eular ctx 02/24/20 32w 2d 220 lb 2 oz (+34 lb 2 oz) 124/76 Negative Negative 150 32 GP - no LOF, VB, DFM, ctx. Denies complaints. 03/10/20 34w 3d 224 lb (+38 lb) 118/80 Negative Negative 145 34 SM- no vb lof good fm no regular ctx 03/21/20 36w 0d 230 lb 6 oz (+44 lb 6 oz) 110/84 Negative Negative 120 36 Cephalic 1 50 -2 GP - no LOF, VB, DFM, ctx . GBS done today. 03/31/20 37w 3d 232 lb 6 oz (+46 lb 6 oz) 124/88 135 37 Cephalic 1 50 -1 GP - no LOF, VB, DFM, ctx . Cx unchanged. 04/06/20 38w 2d 236 lb (+50 lb) 138/86 Negative Negative 115 38 Cephalic 1 50 -1 GP - no LOF, VB, DFM, reg ular ctx. Discussed routes of delivery. 04/13/20 39w 2d 237 lb 4 oz (+51 lb 4 oz) 132/86 Negative Negative 120 39 Cephalic 2 50 -1 GP - no LOF, VB, DFM, ctx . Membranes swept. 04/18/20 40w 0d 236 lb (+50 lb) 140/88 Negative Negative 138 Cephalic 2 70 -1 MH-Irreg CTX. Some bloody discharge. Consult GP-to triage for prolonged monitoring. Urine sent for protein creatinine ratio ACOG First Trimester First Trimester: Desire for , Alcohol, Tobacco Cessation, Illicit/Recreational Drug/Substance Use, Intimate Partner Violence, Barriers to care, Unstable Housing, Communication Barriers, Environmental/Work Hazards, Anticipated Course of Care, Toxoplasmosis Precations, Use of Any medications, Sexual activity, Exercise, Dental Care, Sauna/Hot tub use, Seat Belt use, Childbirth classes/Hospital facilities, , Travel, Indications for US and Screening for Aneuploidy Second Trimester Second Trimester: Signs and Symptoms of Labor, Selecting a care provider, Reproductive Life Planning, Care Planning, Depression/Anxi ety and Intimate Partner Violence; discussed Tobacco Cessation Diagnostics Diagnostics Diagnostics Glucose 1 Hr 50 gm 134 mg/dL (70-140) 01/26/20 Hgb 13.3 g/dL (12.0-15.0) 04/15/20 Hct 38.4 % (37-47) 04/15/20 Details: HIV: Urine Culture: Sequential Screen: NIPT Screen: Results POC Urinalysis 2 Dip (Clinic) Office Urine Glucose Negative Last Edit by Ericka Cotton on 04/18/20 10:4 7 Office Urine Protein Negative Last Edit by Ericka Cotton on 04/18/20 10:4 7 Assessment & Plan Problems 1. Encounter for supervision of other normal in third trimester Z34.83 PRR SHAE 04/18/20 girl Fara fisher [place] 2. 40 weeks gestation of Z3A.40 carrier, genetic, and ntd screening declined. normal anatomy needs 2 week follow up for spine, US FU normal 3. History of pre-eclampsia Z87.59 baseline labs nl, 81mg asa at 14 weeks Plan Patient presents IAL, plan expectant management for , pitocin/AROM PRN if needed. Pain management: plans epidural. GBS positive plan IV vancomycin Management of any complications: none Gestational hypertension - PreE labs negative, BPs mild range to normal I have reviewed the [facility] and made any clinically relevant updates. UPDATE- I have seen the patient and performed any clinically relevant updates to the history and physical exam. Carine Victoria MD
[2020-04-18] MEDS: fentaNYL-bupivacaine (epidural) 100 ML BAG EPIDURAL ×2 (18:26→22:24)
[2020-04-18] MEDS: Ondansetron 4 MG/2 ML Vial IV (18:49)
--- NOTE | 2020-04-18 20:25 | PCM.PN.BLA ---
Progress Note Patient comfortable with epidural current tracing: FHT: 110 Moderate variability reactive no decelerations category I tracing [place]: Every 2 to 3 contractions reviewed tracing abnormalities since last note: Low baseline reassuring heart rate A/P: Pitocin at 2 milliunits, status post epidural, blood pressures within normal limits. Active phase of labor with expectant management STROKE Vital Signs/Narrative: Vital Signs Temp Pulse BP Pulse Ox 04/18/20 20:19 114 H 99 04/18/20 20:12 129 H 98 04/18/20 20:10 103 H 138/75 H 04/18/20 19:33 96 118/68 04/18/20 19:16 97.8 F 97 122/59 H 04/18/20 19:05 86 109/61 04/18/20 18:50 101 H 99 04/18/20 18:45 98 98 04/18/20 18:40 93 131/77 H 99 04/18/20 18:35 91 91 04/18/20 18:34 87 124/74 H 04/18/20 18:30 97.9 F 93 99 04/18/20 18:29 98 133/83 H 04/18/20 18:25 99 99 04/18/20 18:24 88 130/82 H 04/18/20 18:20 86 100 04/18/20 18:19 86 123/71 H 04/18/20 18:16 94 94 04/18/20 18:15 90 98 04/18/20 18:14 83 123/69 H 04/18/20 18:10 103 H 97 04/18/20 18:09 84 143/63 H 04/18/20 18:05 106 H 98 04/18/20 18:00 95 95 04/18/20 17:55 112 H 97 04/18/20 17:25 84 97 04/18/20 17:18 82 131/81 H 04/18/20 17:17 98.6 F
[2020-04-18] MEDS: Oxytocin 30 units/NS 500 ml 30 UNITS/500 ML IV.SOLN 334 UNITS IV (23:38)
--- NOTE | 2020-04-18 23:51 | OP.PCM_ITS ---
Problem List (1) 35 weeks gestation of Status: Acute Comment: COVID Negative (2) Active labor at term Status: Acute (3) Gestational hypertension Status: Acute (4) History of pre-eclampsia Status: Acute Comment: baseline labs nl, 81mg asa at 14 weeks (5) History of tetanus, diphtheria, and acellular pertussis booster vaccination (Tdap) Status: Acute Comment: 01/26/20 (6) Influenza vaccination declined Status: Acute Comment: 12/03/2019sc (7) Positive GBS test Status: Acute Comment: ATB in labor (8) Status: Acute Qualifiers: Comment: carrier, genetic, and ntd screening declined. normal anatomy needs 2 week follow up for spine, US FU normal (9) Supervision of normal Status: Acute Qualifiers: Comment: PRR SHAE 04/18/20 girl Fara fisher [place] Vaginal Delivery Maternal Presentation: Medically Indicated Induction iol GHTN Method of Induction: Pitocin Medical Reason for Induction: Gestational Hypertension Amniotic Membrane Rupture Type: Artificial Amniotic Fluid Description: Moderate meconium Final SHAE: 04/18/20 Gestational age: 40 Weeks and 0 Days Date of Procedure: 04/18/20 Pre-Operative Diagnosis: iol ghtn Post-Operative Diagnosis: same Surgery/ Procedure Performed: Spontaneous Vaginal Delivery Type of Anesthesia: Epidural Description of Procedure: Patient began pushing and delivered the head in the KARY presentation. The head was delivered atraumatically. The anterior and posterior shoulders delivered without complication followed by the rest of the and the infant was placed on the maternal abdomen. Delayed cord clamping was employed for approximately 60 seconds. Cord was clamped and cut and gentle traction was applied to the cord and the placenta delivered spontaneously immediately following it was noted to be intact with three-vessel cord. The perineum and vagina were inspected and noted to have no laceration. EBL was 100 cc. Patient and infant tolerated delivery well. Presentation: KARY Placental Delivery Description: Spontaneous Placenta Disposition: [facility] Estimated Blood Loss: 100 A gender: Female (1 minute): 8 (5 minute): 9 Episiotomy Description: None Laceration: None Medications given after delivery: IV Pitocin Complications: None Multi Select Codes - Urinary/Genital Urinary/Genital CPT Codes: 88318 Vaginal Delivery [facility]
[2020-04-19] VITALS (13 sets, daily range): BP systolic 103–139; BP diastolic 49–90; PULSE 76–126; RESP 16–18; TEMP 36.3–37.1; O2SAT 98
[2020-04-19] MEDS: Naproxen 250 MG Tablet 500 MG PO ×3 (06:06→23:56)
--- NOTE | 2020-04-19 07:44 | DCINST_ITS ---
Discharge Diet: No Restrictions Discharge Activity: Return to Normal Activity, May not drive while taking narcotic pain medications., May Shower May resume sexual activity in: 4-6 weeks Call your doctor if your incision/area has: Continuous Slow Oozing, Sudden Increased Bleeding, Increased Pain/ Swelling, Increased Redness, Foul Smelling Discharge Additional Instructions: If you experience any of the following, contact your healthcare provider. * Bleeding that soaks a pad every hour for 2 hours * Fever 100.4 or higher * Unrelieved incision or abdominal pain * Swelling, redness, discharge or bleeding from your incision or episiotomy site * Your incision begins to separate * Problems urinating (including inability to urinate or burning while urinating). * Visual changes * Severe headache * Flu-like symptoms * Pain or redness in one of both of your breasts * Pain, warmth, tenderness or swelling in your legs, especially the calf area * Frequent nausea and vomiting * Symptoms of depression or anxiety If you experience any of the following, call 911 or go to the nearest Emergency Room. * Chest pain * Problems breathing * Seizure activity * Partial or complete paralysis of a body part, slurred speech, weakness or drooping of the face, or a sudden inability to walk or hold your balance Allergies/Adverse Reactions: Allergies Penicillins Allergy (Verified 04/15/20 18:15) Hives Sulfa (Sulfonamide Antibiotics) Allergy (Verified 04/15/20 18:15) Rash sulfur dioxide Allergy (Verified 04/15/20 18:15) Rash Medications to take at Discharge vitamin #56-iron 35 mg and 5 mg-folic acid 1 mg-dha capsule 1 cap PO DAILY 10/09/19 Aspirin [Aspirin, Baby] 81 mg PO DAILY@0800 04/18/20 Naproxen [Naprosyn] 250 - 500 mg PO Q8H PRN PRN #30 tab 04/19/20 The following prescriptions were given: Naproxen [Naprosyn] 250 - 500 mg PO Q8H PRN PRN #30 tab PRN Reason: MILD PAIN Transmission Status: Pending to [facility] Please Follow Up With: Brenda Rivero MD - [phone] When: Call to make an appointment with your doctor in 6 weeks. If you had elevated Blood pressure or 4th degree laceration you will need to be seen in 2 weeks. Primary Care Physician: Sherrie Duenas NP, BOOKBINDING MACHINE OPERATOR-C [Primary Care Provider] - Test Results: Test results from this visit will be discussed in further detail at your follow- up appointment, if applicable.
--- NOTE | 2020-04-19 07:44 | PCM.DCVAG ---
Discharge Diet: No Restrictions Discharge Activity: Return to Normal Activity, May not drive while taking narcotic pain medications., May Shower May resume sexual activity in: 4-6 weeks Call your doctor if your incision/area has: Continuous Slow Oozing, Sudden Increased Bleeding, Increased Pain/ Swelling, Increased Redness, Foul Smelling Discharge Additional Instructions: If you experience any of the following, contact your healthcare provider. Bleeding that soaks a pad every hour for 2 hours Fever 100.4 or higher Unrelieved incision or abdominal pain Swelling, redness, discharge or bleeding from your incision or episiotomy site Your incision begins to separate Problems urinating (including inability to urinate or burning while urinating). Visual changes Severe headache Flu-like symptoms Pain or redness in one of both of your breasts Pain, warmth, tenderness or swelling in your legs, especially the calf area Frequent nausea and vomiting Symptoms of depression or anxiety If you experience any of the following, call 911 or go to the nearest Emergency Room. Chest pain Problems breathing Seizure activity Partial or complete paralysis of a body part, slurred speech, weakness or drooping of the face, or a sudden inability to walk or hold your balance Allergies/Adverse Reactions: Allergies Penicillins Allergy (Verified 04/15/20 18:15) Hives Sulfa (Sulfonamide Antibiotics) Allergy (Verified 04/15/20 18:15) Rash sulfur dioxide Allergy (Verified 04/15/20 18:15) Rash Medications to take at Discharge vitamin #56-iron 35 mg and 5 mg-folic acid 1 mg-dha capsule 1 cap PO DAILY 10/09/19 Aspirin [Aspirin, Baby] 81 mg PO DAILY@0800 04/18/20 Naproxen [Naprosyn] 250 - 500 mg PO Q8H PRN PRN #30 tab 04/19/20 The following prescriptions were given: Naproxen [Naprosyn] 250 - 500 mg PO Q8H PRN PRN #30 tab PRN Reason: MILD PAIN Transmission Status: Pending to [facility] Please Follow Up With: Brenda Rivero MD - [phone] When: Call to make an appointment with your doctor in 6 weeks. If you had elevated Blood pressure or 4th degree laceration you will need to be seen in 2 weeks. Primary Care Physician: Sherrie Duenas SAUSAGE MACHINE OPERATOR, SAUSAGE MACHINE OPERATOR-C [Primary Care Provider] - Test Results: Test results from this visit will be discussed in further detail at your follow-up appointment, if applicable.
--- NOTE | 2020-04-19 09:30 | PCM.PN.OB ---
Patient Problems: Active and Suspected Problems (Last Reviewed 04/18/20 @ 10:41 by Ericka Cotton) History of tetanus, diphtheria, and acellular pertussis booster vaccination (Tdap) (Acute) 01/26/20 Influenza vaccination declined (Acute) 12/03/2019sc Subjective: Patient doing well without complaints. Tolerating PO. Ambulating and voiding without difficulty. well. Denies chest pain, shortness of breath, calf pain/swelling, fevers, chills, lightheadedness. - Physical Exam Vitals/I&O's: Vital Signs Temp Pulse Resp BP Pulse Ox 97.9 F 80 16 109/55 L 98 04/19/20 08:25 04/19/20 08:25 04/19/20 08:25 04/19/20 08:25 04/19/20 00:05 Oxygen Delivery Method Room Air Weight: 236 lb 15.951 oz Body Mass Index (BMI) 37.0 Intake and Output for Last 24 Hours 04/17/20 04/18/20 04/19/20 23:59 23:59 23:59 Intake Total 2416.47 / 2416.47 500 / 500 Output Total 800 / 800 Balance 2416.47 / 2116.47 -300 / -300 General: Alert, Oriented x3 Abdomen: Soft, Non Tender, Non-Distended, - - FF below U Laboratory Results 04/18/20 11:07: U Random Total Protein 14.2 H, Urine Creatinine 76.70, Protein/Creatinin Ratio 185 04/18/20 11:45: WBC 14.0 H, RBC 4.74, Hgb 13.6, Hct 40.3, MCV 85.0, MCH 28.7, MCHC 33.7, RDW Std Deviation 38.3, RDW Coeff of Lise 12.4, Plt Count 243, MPV 11.3 04/18/20 11:45: Creatinine 0.71, Estim Creat Clear Calc 114.72, Est GFR (MDRD) Af Amer 126, Est GFR (MDRD) Non-Af 104, Uric Acid 5.5, AST 18, ALT 15 04/18/20 11:45: Blood Type O POSITIVE, Antibody Screen NEGATIVE Current Medications Acetaminophen (Acetaminophen 500 Mg Tablet) 1,000 mg PO Q8H PRN PRN PRN Reason: Pain Score 1-3 Bisacodyl (Bisacodyl 10 Mg Suppository) 10 mg RC UD PRN PRN Reason: If no BM Dibucaine (Dibucaine 30 Gm Tube) 1 applic TOPICAL TID PRN PRN; Protocol PRN Reason: Discomfort Hydrocortisone (Hydrocortisone 2.5% Crm) 1 applic TOPICAL TID PRN PRN; Protocol PRN Reason: Discomfort Naproxen (Naproxen 250 Mg Tablet) 500 mg PO Q8H PRN PRN PRN Reason: Pain Score 1-3 Last Admin: 04/19/20 06:06 Dose: 500 mg Documented by: Ondansetron HCl (Ondansetron 4 Mg/2 Ml Vial) 4 mg IV Q4H PRN PRN PRN Reason: Nausea Oxycodone HCl (Oxycodone 5 Mg Tablet) 5 - 10 mg PO Q4H PRN PRN PRN Reason: Pain Score 4-10 Multivit/Folic Acid/Iron ( Vits Tablet) 1 tablet PO DAILY@1200 ELIF Senna/Docusate Sodium (Senna/Docusate Sodium 1 Tablet) 1 - 2 tablet PO DAILY PRN PRN PRN Reason: Constipation Simethicone (Simethicone 80 Mg Tablet) 80 mg PO PCHS PRN PRN Reason: Indigestion/Stomach pain Sodium Chloride (0.9% Saline Lock 10 Ml Syringe) 5 - 15 ml IV UD PRN PRN Reason: SALINE FLUSH Medical Necessity - Tobacco Use Smoking Status: Former smoker Assessment/Plan All Active Problems (Last Reviewed 04/18/20 @ 10:41 by Ericka Cotton) History of tetanus, diphtheria, and acellular pertussis booster vaccination (Tdap) (Acute) Influenza vaccination declined (Acute) 35 weeks gestation of (Resolved) Active labor at term (Resolved) Gestational hypertension (Resolved) History of pre-eclampsia (Resolved) Positive GBS test (Resolved) (Resolved) Supervision of normal (Resolved) 40 weeks gestation of (Resolved) Chorioamnionitis (Resolved) Preeclampsia (Resolved) Vacuum extractor delivery, delivered (Resolved) s/p PPD # 1 1. routine post delivery care 2. breast feeding- support given 3. rh positive 4. rubella immune
[2020-04-19] MEDS: Prenatal Vits Tablet 1 TABLET PO (12:13)
[2020-04-19] MEDS: Acetaminophen 500 MG Tablet 1000 MG PO (19:33)
[2020-04-20 01:52] VITALS: BP 107/59; PULSE 71; RESP 14; TEMP 36.5
[2020-04-20 07:33] VITALS: BP 111/62; PULSE 62; RESP 16; TEMP 36.3; O2SAT 98
[2020-04-20] MEDS: Acetaminophen 500 MG Tablet 1000 MG PO (07:46)
--- NOTE | 2020-04-20 07:56 | PCM.PN.OB ---
Patient Problems: Active and Suspected Problems (Last Reviewed 04/18/20 @ 10:41 by Ericka Cotton) History of tetanus, diphtheria, and acellular pertussis booster vaccination (Tdap) (Acute) 01/26/20 Influenza vaccination declined (Acute) 12/03/2019sc Subjective: Patient doing well without complaints. Tolerating PO. Ambulating and voiding without difficulty. Breast feeding well. Denies chest pain, shortness of breath, calf pain/swelling, fevers, chills, lightheadedness. - Physical Exam Vitals/I&O's: Vital Signs Temp Pulse Resp BP Pulse Ox 97.4 F L 62 16 111/62 98 04/20/20 07:33 04/20/20 07:33 04/20/20 07:33 04/20/20 07:33 04/20/20 07:33 Oxygen Delivery Method Room Air Weight: 236 lb 15.951 oz Body Mass Index (BMI) 37.0 Intake and Output for Last 24 Hours 04/18/20 04/19/20 04/20/20 23:59 23:59 23:59 Intake Total 2416.47 / 2416.47 500 / 500 Output Total 800 / 800 Balance 2416.47 / 2116.47 -300 / -300 General: Alert, Oriented x3, Cooperative Abdomen: Soft, Non-Distended, - - FF below U Current Medications Acetaminophen (Acetaminophen 500 Mg Tablet) 1,000 mg PO Q8H PRN PRN PRN Reason: Pain Score 1-3 Last Admin: 04/20/20 07:46 Dose: 1,000 mg Documented by: Bisacodyl (Bisacodyl 10 Mg Suppository) 10 mg RC UD PRN PRN Reason: If no BM Dibucaine (Dibucaine 30 Gm Tube) 1 applic TOPICAL TID PRN PRN; Protocol PRN Reason: Discomfort Hydrocortisone (Hydrocortisone 2.5% Crm) 1 applic TOPICAL TID PRN PRN; Protocol PRN Reason: Discomfort Naproxen (Naproxen 250 Mg Tablet) 500 mg PO Q8H PRN PRN PRN Reason: Pain Score 1-3 Last Admin: 04/19/20 23:56 Dose: 500 mg Documented by: Ondansetron HCl (Ondansetron 4 Mg/2 Ml Vial) 4 mg IV Q4H PRN PRN PRN Reason: Nausea Oxycodone HCl (Oxycodone 5 Mg Tablet) 5 - 10 mg PO Q4H PRN PRN PRN Reason: Pain Score 4-10 Multivit/Folic Acid/Iron ( Vits Tablet) 1 tablet PO DAILY@1200 ELIF Last Admin: 04/19/20 12:13 Dose: 1 tablet Documented by: Senna/Docusate Sodium (Senna/Docusate Sodium 1 Tablet) 1 - 2 tablet PO DAILY PRN PRN PRN Reason: Constipation Simethicone (Simethicone 80 Mg Tablet) 80 mg PO PCHS PRN PRN Reason: Indigestion/Stomach pain Sodium Chloride (0.9% Saline Lock 10 Ml Syringe) 5 - 15 ml IV UD PRN PRN Reason: SALINE FLUSH Medical Necessity - Tobacco Use Smoking Status: Former smoker Assessment/Plan All Active Problems (Last Reviewed 04/18/20 @ 10:41 by Ericka Cotton) History of tetanus, diphtheria, and acellular pertussis booster vaccination (Tdap) (Acute) Influenza vaccination declined (Acute) 35 weeks gestation of (Resolved) Active labor at term (Resolved) Gestational hypertension (Resolved) History of pre-eclampsia (Resolved) Positive GBS test (Resolved) (Resolved) Supervision of normal (Resolved) 40 weeks gestation of (Resolved) Chorioamnionitis (Resolved) Preeclampsia (Resolved) Vacuum extractor delivery, delivered (Resolved) s/p PPD # 2 1. routine post delivery care 2. breast feeding- support given 3. rh positive 4. rubella immune 5. home today
== END 2020-04-20 11:00 | disposition home or self-care (01) | DRG 807 ==
LOC: WPOUT 13:00 → WP 13:00
PROVIDERS: Nurse Practitioner Women's Health; Obstetrics & Gynecology; Admitting Provider Obstetrics & Gynecology; PCP Nurse Practitioner; Referring Provider Obstetrics & Gynecology; Visit Provider Obstetrics & Gynecology
DX: O13.4 Gestational [pregnancy-induced] hypertension without significant proteinuria, complicating childbirth (principal); O14.94 Unspecified pre-eclampsia, complicating childbirth; O99.824 Streptococcus B carrier state complicating childbirth; O77.0 Labor and delivery complicated by meconium in amniotic fluid; Z87.891 Personal history of nicotine dependence; Z3A.40 40 weeks gestation of pregnancy; Z37.0 Single live birth
CPT/HCPCS: 59025; 59050; 82565; 82570; 84156; 84450; 84460; 84550; 85027; 86850; 86900; 86901; 99218; J7120; G0378; J2405

== ENCOUNTER → 2020-06-02 | Outpatient (CLI) | payer BC, SELFPAY ==
[2020-06-02 09:19] VITALS: BMI 34.4
[2020-06-07 17:04] LABS: HPV Reflexed? NOT INDICATED
== END | disposition home or self-care (01) ==
LOC: LABSPEC 13:05
PROVIDERS: PCP Nurse Practitioner; Referring Provider Obstetrics & Gynecology; Visit Provider Obstetrics & Gynecology
DX: Z12.4 Encounter for screening for malignant neoplasm of cervix (principal)
CPT/HCPCS: 88175; G0145

== ENCOUNTER → 2020-12-16 12:50 | Outpatient (CLI) | payer BC, SELFPAY ==
--- NOTE | 2020-12-16 12:54 | US_ITS ---
STUDY: ULTRASOUND OF THE FEMALE PELVIS - COMPLETE REASON FOR EXAM: Female, 30 years old. Right pelvic pain with urination. LMP: 11/26/2020. TECHNIQUE: Transabdominal and Transvaginal TECHNICAL QUALITY: Adequate. COMPARISON: None. FINDINGS: The uterus is anteverted and is in a midline position. The uterus measures 8.3 cm x 5 cm x 4.2 cm. Normal uterine cervix. The endometrium measures 14 mm in thickness, and is hyperechoic. There is no demonstrated endometrial mass. There is no demonstrated myometrial mass. I.U.D. - The patient does not have an I.U.D. The right ovary is visualized. The right ovary measures 2.4 cm x 2.9 cm x 1.8 cm. There is no right ovarian cyst or ovarian mass. There is no visualized right adnexal mass or complex lesion. There is normal arterial and normal venous vascularity. The left ovary is visualized. The left ovary measures 3.6 cm x 3.7 cm x 3.1 cm. There is a 2.1 cm x 2.7 cm x 2.3 cm left ovarian cyst. There is no visualized left adnexal mass or complex lesion. There is normal arterial and normal venous vascularity. There is minimal fluid in the cul-de-sac. The pre void volume of the bladder was 584 ml. US/Pelvic (Non ) IMPRESSION: 2.1 cm x 2.7 cm x 2.3 cm left ovarian cyst. Electronically Signed: Idris Booth MD at 15:35 EDT , Service support ,
--- NOTE | 2020-12-16 12:54 | US_ITS ---
STUDY: ULTRASOUND OF THE FEMALE PELVIS - COMPLETE REASON FOR EXAM: Female, 30 years old. Right pelvic pain with urination. LMP: 11/26/2020. TECHNIQUE: Transabdominal and Transvaginal TECHNICAL QUALITY: Adequate. COMPARISON: None. FINDINGS: The uterus is anteverted and is in a midline position. The uterus measures 8.3 cm x 5 cm x 4.2 cm. Normal uterine cervix. The endometrium measures 14 mm in thickness, and is hyperechoic. There is no demonstrated endometrial mass. There is no demonstrated myometrial mass. I.U.D. - The patient does not have an I.U.D. The right ovary is visualized. The right ovary measures 2.4 cm x 2.9 cm x 1.8 cm. There is no right ovarian cyst or ovarian mass. There is no visualized right adnexal mass or complex lesion. There is normal arterial and normal venous vascularity. The left ovary is visualized. The left ovary measures 3.6 cm x 3.7 cm x 3.1 cm. There is a 2.1 cm x 2.7 cm x 2.3 cm left ovarian cyst. There is no visualized left adnexal mass or complex lesion. There is normal arterial and normal venous vascularity. There is minimal fluid in the cul-de-sac. The pre void volume of the bladder was 584 ml. US/Transvaginal Non- IMPRESSION: 2.1 cm x 2.7 cm x 2.3 cm left ovarian cyst. Electronically Signed: Idris Booth MD at 15:35 EDT , Service support ,
== END ==
PROVIDERS: PCP Nurse Practitioner; Referring Provider Obstetrics & Gynecology; Visit Provider Obstetrics & Gynecology
DX: R10.2 Pelvic and perineal pain (principal)
CPT/HCPCS: 76830; 76856; 93976

== ENCOUNTER 2021-04-05 14:00 | Outpatient (CLI) | payer BC, SELFPAY | END 2021-04-05 23:59 | disposition short-term general hospital (02) | LOC: LABSPEC 14:02 | PROVIDERS: PCP Nurse Practitioner; Visit Provider Nurse Practitioner Women's Health | DX: N76.0 Acute vaginitis (principal) | CPT/HCPCS: 87070; 87205 ==

== ENCOUNTER → 2021-11-29 | Outpatient (CLI) | payer BC, SELFPAY | END | disposition home or self-care (01) | LOC: LABSPEC 15:19 | PROVIDERS: PCP Nurse Practitioner; Referring Provider Nurse Practitioner Women's Health; Visit Provider Nurse Practitioner Women's Health | DX: N76.0 Acute vaginitis (principal) | CPT/HCPCS: 87070; 87205 ==

== ENCOUNTER → 2022-04-13 | Outpatient (CLI) | payer BC, SELFPAY ==
[2022-04-13 14:10] LABS: Estradiol 41.1 pg/mL; Follicle Stimulating Hormone 5.7 mIU/mL; T4 Free Direct 1.04 ng/dL (0.76-1.46); Thyroid Stim Hormone (TSH) 0.73 uIU/mL (0.358-3.74)
== END | disposition home or self-care (01) ==
PROVIDERS: PCP Internal Medicine; Visit Provider Obstetrics & Gynecology
DX: N76.0 Acute vaginitis (principal); N92.6 Irregular menstruation, unspecified
CPT/HCPCS: 36415; 82670; 83001; 84439; 84443; 87070; 87205

== ENCOUNTER 2024-11-13 11:29 | Emergency (ER) | payer BC, SELFPAY ==
[2024-11-13 11:29] VITALS: BP 142/103; PULSE 69; RESP 14; TEMP 36.8; O2SAT 98; BMI 28.6
--- NOTE | 2024-11-13 11:43 | EDS_ITS ---
HPI History of Present Illness Chief Complaint: Abd Pain Narrative Narrative: Patient is a 33-year-old female past medical history of endometriosis who presented to the emergency department the chief complaint abdominal pain. She states that she has had issues with her abdominal pain for the last few months off-and-on but states that most recently has been constant for the past 3 days. She states that her mail processing clerk diagnosed her with a hiatal hernia by testing her saliva states that she does drink alcohol socially had a glass of wine on Saturday denies any drug use. Patient denies any sick contacts. Patient states that her pain is worse after eating. [facility] Medical History Endometriosis Home Medications ?Medication ?Instructions ?Recorded ?Last Taken ?Type cetirizine 10 mg capsule (Zyrtec) 10 mg PO DAILY PRN 0 11/29/21 Unknown History montelukast 10 mg tablet 10 mg PO DAILY 11/29/21 Unkn own History (Singulair) lactobacillus combination no.4 3 3,000 mmu cells PO DA LANDON 04/13/22 Unknown History billion cell capsule (Probiotic) etonogestrel 0.12 mg-ethinyl 1 vag ring vaginal .COMPL EX #3 ea 05/15/22 Unknown Rx estradiol 0.015 mg/24 hr vaginal ring (NuvaRing) hydrocortisone 2.5 % topical 1 applic topical BID #28. 35 grams 03/11/23 Unknown Rx ointment dicyclomine 20 mg tablet 20 mg PO TID PRN abdominal p ain 11/13/24 Unknown Rx #20 tabs ondansetron 4 mg disintegrating 4 mg PO Q6H PRN nausea and 11/13/24 Unknown Rx tablet vomiting #20 tabs pantoprazole 40 mg tablet,delayed 40 mg PO DAILY #30 t abs 11/13/24 Unknown Rx release (Protonix) Allergy/AdvReac Type Severity Reaction Status Date / Time Penicillins Allergy Hives Verified 11/13/24 11:30 Sulfa (Sulfonamide Allergy Rash Verified 11/13/24 11:30 Antibiotics) sulfur dioxide Allergy Rash Verified 11/13/24 11:30 Family History Mother Hypertension Father Hypertension Grandfather Throat cancer Diabetes Surgical History History of ovarian cystectomy S/P laparoscopy Social History Smoking Status: Former smoker alcohol intake: never substance use type: does not use caffeine: Yes what type of physical activity do you participate in: aerobics and weight training frequency: 3-4 times per week seatbelt use: always do you feel safe at home: Yes additional social history: - [place]- RICHARD Burroughs Patient works at [employer] ROS ED ROS Narrative Constitutional: Denies any fevers, chills, headaches Eyes: Denies double vision Cardiovascular: Denies chest pain Respiratory: Denies coughing wheezing shortness of breath Abdomen: Complains of abdominal pain as noted above denies vomiting or diarrhea denies black stools : Denies any urinary symptoms Neurological: Denies numbness, weakness, tingling Musculoskeletal: Denies back pain Skin: Denies any rashes or lesions EXAM Physical Exam Narrative Exam Narrative: General: Patient was lying in bed rest comfortably did not appear to be acute distress Head: Atraumatic, normocephalic Eyes: PERRL bilaterally, EOMI bilaterally, no conjunctival injection noted Neck: Soft, supple, trachea midline Cardiovascular: Regular rate and rhythm Abdomen: Soft, nondistended, tender to palpation in the epigastric in the right upper quadrant as well as in the right lower quadrant no rebound or guarding on exam Extremities: +5/5 strength noted in the bilateral upper and lower extremities, radial pulses +2/4 in the bilateral extremities Neurological: Patient follow commands knew that she was at [facility] year is 2024 Skin: Warm, dry, intact no rashes lesions noted Const Vital Signs: 11/13/24 11:29 Temperature 98.3 F Temperature Source Temporal Pulse Rate 69 Respiratory Rate 14 Blood Pressure 142/103 H Blood Pressure Mean 116 Pulse Ox 98 Oxygen Delivery Method Room Air MDM MDM MDM Narrative Medical decision making narrative: Patient is a 53-year-old female who presents to the emergency department chief complaint of abdominal pain. On the differential diagnose includes but limited to gastritis, peptic ulcer disease, cholecystitis, pancreatitis, viral gastroenteritis. Once workup is obtained reviewed she will be reevaluated. Patient be given IV fluids, Zofran and Bentyl Patient's CBC reviewed showed no evidence of leukocytosis white blood cell normal 6.3, he was 13.6, plate count of 206. Patient sodium normal 140, potassium low at 3.8, creatinine was 0.94. Patient AST and ALT are 21 and 14 respectively. Patient test negative, urinalysis reviewed showed no evidence of infection. Patient CT abdomen pelvis IV contrast showed follicle in the right ovary small amount of free fluid in the cul-de-sac may be related to patient's menstrual cycle. I reevaluated the patient and she would like to go home at this point time. Patient be given prescriptions for Bentyl, Zofran, Protonix. She was advised to follow-up with gastroenterology which she was referred to Karyna as well as a primary care physician. She is vies return with worsening symptoms or concerns. All course concerns answered she was discharged home in stable condition. Patient given GI cocktail and Protonix here in the emergency department. Lab Data Labs: Laboratory Results - last 24 hr 11/13/24 11/13/24 12:00 12:55 WBC 6.3 RBC 4.71 Hgb 13.6 Hct 40.4 MCV 85.8 MCH 28.9 MCHC 33.7 RDW Std Deviation 39.8 RDW Coeff of Lise 12.6 Plt Count 206 MPV 10.6 Immature Gran % (Auto) 0.500 Neut % (Auto) 58.6 Lymph % (Auto) 30.9 [place] % (Auto) 7.7 Eos % (Auto) 1.7 Baso % (Auto) 0.6 Absolute Neuts (auto) 3.7 Absolute Lymphs (auto) 1.96 Nucleated RBC % 0 Sodium 140 Potassium 3.8 Chloride 106 Carbon Dioxide 22.6 Anion Gap 12 BUN 11 Creatinine 0.94 Estim Creat Clear Calc 95.16 Est GFR (MDRD) Non-Af 83 BUN/Creatinine Ratio 11.3 Glucose 89 Calcium 9.4 Total Bilirubin 0.71 AST 21 ALT 14 Alkaline Phosphatase 38 Total Protein 6.9 Albumin 4.3 Globulin 2.6 Albumin/Globulin Ratio 1.6 Lipase 16 Serum , Qual NEGATIVE Urine Color Straw Urine Clarity Clear Urine pH 7.0 Ur Specific [place] 1.010 Urine Protein Negative Urine Glucose (UA) Normal Urine Ketones Negative Urine Occult Blood Negative Urine Nitrite Negative Urine Bilirubin Negative Urine Urobilinogen Normal Ur Leukocyte Esterase Negative Urine RBC 0 SEEN Urine WBC 0 SEEN Ur Squamous Epith Cells 0-5 SEEN Urine Bacteria 0 SEEN Urine Mucus 0 SEEN Radiography Diagnostic Testing: Clinical Impression(s) from Imaging Studies Abdomen/Pelvis CT 11/13/24 13:27 IMPRESSION: Follicle in the right ovary. Small amount of free fluid in the cul-de-sac. This may be related to the patient's menstrual cycle. Reading Location: [facility] Discharge Plan Triage Chief Complaint: Abd Pain ED Provider: Pb Aparicio Dx/Rx/DC Orders Clinical Impression: Abdominal pain, Endometriosis Prescriptions: New dicyclomine 20 mg tablet 20 mg PO TID PRN (Reason: abdominal pain) Qty: 20 0RF ondansetron 4 mg tablet,disintegrating 4 mg PO Q6H PRN (Reason: nausea and vomiting) Qty: 20 0RF pantoprazole [Protonix] 40 mg tablet,delayed release (DR/EC) 40 mg PO DAILY Qty: 30 0RF No Action montelukast [Singulair] 10 mg tablet 10 mg PO DAILY Zyrtec 10 mg capsule 10 mg PO DAILY PRN Probiotic 3 billion cell capsule 3,000 mmu cells PO DAILY Rx Instructions: administer with a meal etonogestrel-ethinyl estradiol [NuvaRing] 0.12-0.015 mg/24 hr ring 1 vag ring vaginal .COMPLEX Qty: 3 2RF Rx Instructions: 1 vag ring vaginally leave in 4 weeks then replace for continuous cycling; hydrocortisone 2.5 % ointment 1 applic topical BID Qty: 28.35 1RF Primary Care Provider: Lynn Ledesma Referrals: Farnaz Falcon MD [Med Staff - Crew Lead] - FriendDavid DO [Med Staff - Active Staff] - Activity Restrictions/Additional Instructions: Your CT scan did not show any evidence of a hiatal hernia. Your blood work was normal. Your CT scan did not show any acute findings. Take prescriptions as prescribed. Follow-up with the candy polisher you are referred to as well as your primary care physician. Return with worsening symptoms or other concerns. Print Language: Kenyan Disposition Disposition: Home, Self Care
[2024-11-13] MEDS: 0.9% Normal Saline (1000mL) 1,000 ML 999 ML IV (12:05)
[2024-11-13 12:21] LABS: Hematocrit 40.4 % (37-47); Hemoglobin 13.6 g/dL (12.0-15.0); Immature Granulocytes Count 0.030 X10^3/uL (0.0-0.0); Mean Corp Hgb Conc 33.7 g/dL (32-36); Mean Corpuscular Volume 85.8 fL (81-99); Mean Platelet Vol. 10.6 fl (6.2-12.0); NRBC Flagged by Analyzer 0 % (0-5); Platelet Count 206 K/mm3 (150-450); RBC Distribution Width CV 12.6 % (11.6-14.6); RBC Distribution Width SD 39.8 fl (35.1-43.9); Red Blood Count 4.71 M/mm3 (4.2-5.4); White Blood Count 6.3 K/mm3 (4.4-11.0)
[2024-11-13 12:58] LABS: Internal QC Validated? YES +Cl - CLEAR BKGD; Pregnancy, Serum, hCG Quali. NEGATIVE Negative; Record Kit Lot#, Serum Preg. 0000964736
[2024-11-13 13:01] LABS: AST(SGOT) 21 U/L (<=31); Alanine Aminotransfer ALT/SGPT 14 U/L (<=34); Albumin, Serum 4.3 g/dL (3.5-5.0); Alkaline Phosphatase 38 U/L (35-104); Anion Gap 12 (5-15); BUN 11 mg/dL (4-19); BUN/Creat Ratio 11.3 RATIO (10-20); Calcium,Total 9.4 mg/dL (7.6-11.0); Carbon Dioxide 22.6 mmol/L (21.0-32.0); Chloride 106 mmol/L (98-108); Estimated Creatinine Clearance 95.16 ml/min (50-250); Globulin 2.6 g/dL (2.2-4.2); Glucose 89 mg/dL (70-99); Lipase 16 U/L (13-75); Potassium 3.8 mmol/L (3.3-5.1)
[2024-11-13 13:02] LABS: Mucous, Urine 0 SEEN /hpf (<or=2+); Red Blood Cells-Urine 0 SEEN /hpf (0-5)
[2024-11-13 13:16] LABS: Color, Urine Straw (Yellow); Glucose, Dipstick Normal (Normal); Ketone-Dipstick Negative (Negative); Leukocyte Esterase-Dipstick Negative /ul (Negative); Nitrite-Dipstick Negative (Negative); Occult Blood-Urine Negative /ul (Negative); Protein-Dipstick Negative (Negative); Specific Gravity, Urine 1.010 (1.002-1.030); Urine Bilirubin Dipstick Negative (Negative)
--- NOTE | 2024-11-13 13:27 | CT_ITS ---
PROCEDURE: ABDOMEN/PELVIS W IV CONT ONLY 11/13/2024 REASON FOR EXAM: EPIGASTRIC, RUQ PAIN TECHNIQUE: Procedure Code: [id number] Modality: CT Procedure: ABDOMEN/PELVIS W IV CONT ONLY Coronal and Sagittal reconstruction series were provided. CONTRAST: Isovue-300 VOLUME: 100 mL One or more dose reduction techniques were used (e.g., Automated exposure control, adjustment of the mA and/or kV according to patient size, use of iterative reconstruction technique. RADIATION DOSE SUMMARY: CTDlvol: 12.6 mGy DLP: 827.5 mGycm COMPARISON: None FINDINGS: Lung bases: The lung bases are clear. Liver: Normal size. No mass. Gallbladder: Unremarkable Spleen: Normal size. Pancreas: Normal size without evidence of mass surrounding inflammation or ductal dilation. Adrenals: Unremarkable Kidneys: Normal renal sizes. No hydronephrosis. Bladder: Unremarkable Reproductive Organs: There is a dominant follicle in the right ovary measuring 1.3 cm. The uterus is unremarkable. Bowel: Unremarkable Appendix: Unremarkable Lymph nodes: Unremarkable. Vasculature: The abdominal aorta and IVC are normal. Peritoneum / Retroperitoneum: Small amount of free fluid is seen in the cul-de-sac. Bones: Unremarkable CT/Abdomen/Pelvis W IV Cont ONLY IMPRESSION: Follicle in the right ovary. Small amount of free fluid in the cul-de-sac. Th is may be related to the patient's menstrual cycle. Reading Location: [id number]
[2024-11-13 13:42] LABS: Squamous Epithelial Cells - UA 0-5 SEEN /hpf (5-10)
[2024-11-13] MEDS: Lidocaine 2% Viscous15 ML UDC 15 ML PO (14:43)
[2024-11-13] MEDS: Pantoprazole Sodium 40 MG in 0.9% Normal Saline (100mL MB+) 100 ML 300 MG IV (14:44)
[2024-11-13 14:51] VITALS: BP 121/72; PULSE 60; RESP 16; TEMP 36.6; O2SAT 100
== END 2024-11-13 15:11 | disposition home or self-care (01) ==
PROVIDERS: Emergency Provider Emergency Medicine; PCP Nurse Practitioner Family; Visit Provider Emergency Medicine
DX: N80.9 Endometriosis, unspecified (principal); Z87.891 Personal history of nicotine dependence
CPT/HCPCS: 74177; 80053; 81001; 83690; 84703; 85025; 96361; 96365; 96375; 99283; Q9967; A4216; J2405

== ENCOUNTER → 2024-12-25 | Outpatient (CLI) | payer BC, SELFPAY | END | disposition home or self-care (01) | LOC: US 09:06 | PROVIDERS: PCP Nurse Practitioner Family; Referring Provider Nurse Practitioner Acute Care; Visit Provider Nurse Practitioner Acute Care | DX: R19.7 Diarrhea, unspecified (principal); K59.00 Constipation, unspecified; R10.13 Epigastric pain; R14.0 Abdominal distension (gaseous) | CPT/HCPCS: 76705 ==